=== PATIENT | female | born 1995 | race Caucasian/White ===

== ENCOUNTER 2017-06-29 17:27 | Emergency (ER) | payer BC, SELFPAY ==
[2017-06-29 17:33] VITALS: BP 151/80; PULSE 96; RESP 16; TEMP 36.5; O2SAT 98; BMI 43.9
--- NOTE | 2017-06-29 17:45 | HMH.EDGENADL ---
ED Disposition Clinical Impression: Laceration of thumb without complication, Laceration Disposition: Home, Self-Care Condition on Discharge: Good Instructions: DI for Laceration Repair Additional Instructions: keep the wound dry and clean. use ssplint all the time. wound recheck in am with dr mosses. barragan if needed. - Critical Care Critical Care Time: No Attestation: On 06/29/17, the high probability of a clinically significant, sudden or life threatening deterioration of the following system(s) required my full and direct attention, intervention and personal management. The time I documented below is in addition to time spent performing reported procedures but includes the following listed in this critical care notation. Medical Decision Making Vital Signs: 06/29/17 17:33 Temperature 97.7 F Temperature Source Temporal Artery Scan Pulse Rate [Right Brachial] 96 H Respiratory Rate 16 Blood Pressure [Right Arm] 151/80 Blood Pressure Mean [Right Arm] 103 Blood Pressure Source [Right Arm] Automatic Cuff Blood Pressure Position [Right Arm] Sitting 02 Sat by Pulse Oximetry 98 - Alfred Inquiry Pt receiving controlled substance: No Alfred was queried for this patient: No Medical Decision Making Narrative: The discussion with the patient she opted to use Steri-Strips and glue. She understands that she has to keep the splint on all the time until full healing. General Adult HPI - General Chief complaint: Wound/Laceration Stated complaint: AO 1630 Left Thumb Lac at Home Mode of Arrival: Ambulatory Limitations: No Limitations Description of Symptoms (Recalled from ER Triage Doc. by RN): LEFT THUMB LACERATION WHEN CUTTING OPEN A TOY WITH A KNIFE - History of Present Illness HPI narrative: 22 years old who cut her distal right thumb while he. Bleeding stopped. Onset (ago): minute(s) Location: right, upper extremity Radiation: non-radiation Severity scale (1-10): 1 Relieving factors: rest (extending the thumb close the wound) Exacerbating factors: movement (causes dehescence ) Associated symptoms: denies other symptoms (No loss of motor movement or sensations.) - Related Data Allergies Allergy/AdvReac Type Severity Reaction Status Date / Time ciprofloxacin [From CIPRO] Allergy Unknown Unverified 06/03/17 14:13 [facility] History I have reviewed the patient's past medical history: Yes - *Social History Alcohol Intake: never - Psychiatric History Expresses thoughts of harming self/others: None Suicide Plan Description: No Plan ROS Obtained: Yes All systems reviewed & no additional complaints - Constitutional Constitutional: Reports as per HPI - Eyes Eyes: Reports as per HPI - ENT Ears, Nose, Mouth, and Throat: Reports as per HPI - Cardiovascular Cardiovascular: Reports as per HPI - Respiratory Respiratory: Yes as per HPI - Gastrointestinal Gastrointestingal: Reports: as per HPI - Genitourinary Male Genitourinary: Reports as per HPI Female Genitourinary: Reports as per HPI - Musculoskeletal Musculoskeletal: Reports as per HPI - Integumentary/Breasts Skin/Breast: Reports as per HPI - Endocrine Endocrine: Reports as per HPI - Hematologic/Lymphatic Henatologic/Lymphatic: Reports as per HPI - Allergic/Immunologic Allergic/Immunologic: Reports as per HPI Physical Exam - General General appearance: alert, in no apparent distress - Head Head exam: atraumatic, normocephalic, normal inspection - Eye Eye exam: Present: normal appearance, PERRL, EOMI - ENT ENT exam: Present: normal exam, normal oropharynx, mucous membranes moist, TM's normal bilaterally, normal external ear exam - Neck Neck exam: Present: normal inspection, full ROM, trachea midline. Absent: meningismus, lymphadenopathy - Chest Chest inspection: Present: normal inspection, symmetric chest wall rise. Absent: tenderness - Respiratory Respiratory exam: Present: normal lung s
--- NOTE | 2017-06-29 17:49 | ED_ITS ---
ED Disposition Clinical Impression: Laceration of thumb without complication, Laceration Disposition: Home, Self-Care Condition on Discharge: Good Instructions: DI for Laceration Repair Additional Instructions: keep the wound dry and clean. use ssplint all the time. wound recheck in am with dr mosses. barragan if needed. - Critical Care Critical Care Time: No Attestation: On 06/29/17, the high probability of a clinically significant, sudden or life threatening deterioration of the following system(s) required my full and direct attention, intervention and personal management. The time I documented below is in addition to time spent performing reported procedures but includes the following listed in this critical care notation. Medical Decision Making Vital Signs: 06/29/17 17:33 Temperature 97.7 F Temperature Source Temporal Artery Scan Pulse Rate [Right Brachial] 96 H Respiratory Rate 16 Blood Pressure [Right Arm] 151/80 Blood Pressure Mean [Right Arm] 103 Blood Pressure Source [Right Arm] Automatic Cuff Blood Pressure Position [Right Arm] Sitting 02 Sat by Pulse Oximetry 98 - Alfred Inquiry Pt receiving controlled substance: No Alfred was queried for this patient: No Medical Decision Making Narrative: The discussion with the patient she opted to use Steri-Strips and glue. She understands that she has to keep the splint on all the time until full healing. General Adult HPI - General Chief complaint: Wound/Laceration Stated complaint: AO 1630 Left Thumb Lac at Home Mode of Arrival: Ambulatory Limitations: No Limitations Description of Symptoms (Recalled from ER Triage Doc. by RN): LEFT THUMB LACERATION WHEN CUTTING OPEN A TOY WITH A KNIFE - History of Present Illness HPI narrative: 22 years old who cut her distal right thumb while he. Bleeding stopped. Onset (ago): minute(s) Location: right, upper extremity Radiation: non-radiation Severity scale (1-10): 1 Relieving factors: rest (extending the thumb close the wound) Exacerbating factors: movement (causes dehescence ) Associated symptoms: denies other symptoms (No loss of motor movement or sensations.) - Related Data Allergies Allergy/AdvReac Type Severity Reaction Status Date / Time ciprofloxacin [From CIPRO] Allergy Unknown Unverified 06/03/17 14:13 [facility] History I have reviewed the patient's past medical history: Yes - *Social History Alcohol Intake: never - Psychiatric History Expresses thoughts of harming self/others: None Suicide Plan Description: No Plan ROS Obtained: Yes All systems reviewed & no additional complaints - Constitutional Constitutional: Reports as per HPI - Eyes Eyes: Reports as per HPI - ENT Ears, Nose, Mouth, and Throat: Reports as per HPI - Cardiovascular Cardiovascular: Reports as per HPI - Respiratory Respiratory: Yes as per HPI - Gastrointestinal Gastrointestingal: Reports: as per HPI - Genitourinary Male Genitourinary: Reports as per HPI Female Genitourinary: Reports as per HPI - Musculoskeletal Musculoskeletal: Reports as per HPI - Integumentary/Breasts Skin/Breast: Reports as per HPI - Endocrine Endocrine: Reports as per HPI - Hematologic/Lymphatic Henatologic/Lymphatic: Reports as per HPI - Allergic/Immunologic Allergic/Im
== END 2017-06-29 17:53 | disposition home or self-care (01) ==
PROVIDERS: Emergency Provider Emergency Medicine; Family Provider Family Medicine
DX: S61.012A Laceration without foreign body of left thumb without damage to nail, initial encounter (principal); W26.0XXA Contact with knife, initial encounter; Y93.89 Activity, other specified; Y92.009 Unspecified place in unspecified non-institutional (private) residence as the place of occurrence of the external cause
CPT/HCPCS: 99282

== ENCOUNTER 2017-06-30 16:33 | Emergency (ER) | payer BC, SELFPAY | END 2017-06-30 17:33 | disposition left against medical advice (07) | PROVIDERS: Emergency Provider Nurse Practitioner; Family Provider Family Medicine; PCP Family Medicine | DX: Z53.29 Procedure and treatment not carried out because of patient's decision for other reasons (principal); S61.019A Laceration without foreign body of unspecified thumb without damage to nail, initial encounter ==

== ENCOUNTER → 2017-09-25 15:25 | Outpatient (CLI) | payer BC, SELFPAY ==
[2017-09-25 16:04] LABS: Basophils % 0.2 % (0.1-2.0); Eosinophils # 0.2 K/mm3 (0.0-0.4); Eosinophils % 1.9 % (0.1-12.0); Hematocrit 42.8 % (37.0-47.0); Hemoglobin 13.6 g/dL (12.2-16.2); Lymphocytes # 1.8 K/mm3 (0.7-4.5); Lymphocytes % 17.7 K/mm3 (10-50); Mean Corpuscular HGB Conc 31.8 g/dL (31.8-35.4); Mean Corpuscular Hemoglobin 26.7 pg (27.0-31.2); Mean Corpuscular Volume 84.1 fl (81-99); Mean Platelet Volume 7.8 fl (7.4-10.4); Monocytes # 0.5 K/mm3 (0.1-1.0); Monocytes % 5.2 % (1.7-9.3); Neutrophils # 7.6 K/mm3 (1.8-7.8); Platelet Count 355 K/mm3 (142-424); Red Blood Count 5.09 M/mm3 (4.20-5.40); White Blood Count 10.2 K/mm3 (4.8-10.8)
[2017-09-27 08:20] LABS: HIV Screen 4th Generation wRfx Non Reactive (Non Reactive)
[2017-09-27 19:03] LABS: Hepatitis B Surface Antigen Negative (Negative); Hepatitis C Antibody <0.1 s/co ratio (0.0-0.9); Rapid Plasma Reagin Ab Titer Non Reactive (NonRea<1:1); Rubella Antibodies, IgG 5.34 index (Immune >0.99)
== END ==
PROVIDERS: Family Provider Family Medicine; PCP Family Medicine; Visit Provider Obstetrics & Gynecology
DX: Z34.90 Encounter for supervision of normal pregnancy, unspecified, unspecified trimester (principal)
CPT/HCPCS: 36415; 85025; 86592; 86703; 86762; 86850; 87340; 87380; G0432

== ENCOUNTER → 2017-09-30 10:32 | Outpatient (CLI) | payer BC, SELFPAY ==
--- NOTE | 2017-09-30 10:33 | US_ITS ---
US OB transvaginal HISTORY: ITS.REASON: US OB - Dates ORDERING PHYSICIAN: Janet Terrell MD PATIENT AGE: 22 years COMPARISON: FINDINGS: An intrauterine gestational sac is present with a pole with a crown-rump length of 0.40 cm correlating to gestational age of 6w1d . heart tones are present with an FHR of 114 bpm's. Yolk sac is noted. Adnexa: There is a 1 cm right corpus luteum cyst. IMPRESSION: Live intrauterine gestation at 8 weeks 1 days as described above. Estimated due date by ultrasound is 05/25/2018
== END ==
PROVIDERS: Family Provider Family Medicine; PCP Family Medicine; Visit Provider Obstetrics & Gynecology
DX: O26.841 Uterine size-date discrepancy, first trimester (principal)
CPT/HCPCS: 76830

== ENCOUNTER → 2018-01-05 13:32 | Outpatient (CLI) | payer MEDICAID, SELFPAY ==
--- NOTE | 2018-01-05 13:33 | US_ITS ---
US OB /maternal detail: INDICATION: ITS.REASON: US OB Complete ORDERING PHYSICIAN: Janet Terrell MD PATIENT AGE: 22 years TECHNIQUE: ultrasound transabdominal scanning. COMPARISON: No previous relevant studies. FINDINGS: Maternal obesity slight difficult scan Single active viable intrauterine gestation. Breech position Currently. Placenta: Posterior placenta extends towards the fundus. Grade 1. No previa The cervix appears satisfactory fairly long, Closed and measuring 4.6 cm in length. Complete survey performed and was unremarkable on the submitted images as in PACS. No discrete anomalies identified on survey imaging by technologist. Active fetus.Three-vessel cord with satisfactory umbilical cord insertion. Survey of brain & ventricles. In posterior fossa unremarkable Face and neck survey unremarkable. Nasion intact Diaphragm and chest views unremarkable. 4- chamber heart imaged. Cine loop included. LVOT imaged Abdomen: Both kidneys noted and unremarkable. Stomach noted and satisfactory. Spine: Survey of the spine satisfactory with no anomalies identified nor imaged. Both arms and legs noted. Appears to be a male fetus. Amniotic Fluid: Adequate. Maternal adnexa: No gross findings encountered. Measurements: Average ultrasound age 20 week 2 day. Gestational Age 20 week 0 day. Based on LMP 08/18/2017 Estimated due date by ultrasound age 1205/23/2018. Estimated weight 3 47-g +/- 51 grams. BPD = 20 week 0 day OFD = 21 week 2 day HC = 20 week 1 day AC = 20 week 5 day FL = 20 week 1 day Heart Rate = 155 Cerebellum = 20 week 0 day Humerus = 20 week 5 day HC/AC = 1.14.(1.09-1.26.) CI = 72%.(70-86%). FL/BPD is 71%. FL/AC is 21%. IMPRESSION: 20 week 2 day average ultrasound age breech position . Active fetus. Anatomical survey of unremarkable & WNL
== END ==
PROVIDERS: Family Provider Family Medicine; PCP Family Medicine; Visit Provider Obstetrics & Gynecology
DX: Z36.0 Encounter for antenatal screening for chromosomal anomalies (principal)
CPT/HCPCS: 76811

== ENCOUNTER → 2018-03-04 09:18 | Outpatient (CLI) | payer MEDICAID, SELFPAY ==
--- NOTE | 2018-03-04 09:26 | CA_ITS ---
PROCEDURE: 2-D M-mode and color Doppler study INDICATIONS FOR THE TEST: Chest pain COPD Heart Murmur+ Tobacco Smoking Palpitations Fatigue Syncope Edema Hypertension Diabetes Mellitus Rheumatic Fever SOB M[place] Obesity+Hyperlipidemia Family History HD Additional History PREG 28 WEEKS PATIENT INFORMATION HEIGHT: 62 WEIGHT:261 GENDER: Female B/P:117/78 2-D/M-MODE INTERPRETATION: 2-D MEASUREMENTS OBSERVED VALUES IN CMS Right Ventricular Dimension (RVDd) 1.9 Interventricular Septum (Thickness)(IVsd) 1.0 Left Ventricular Internal Dimensions(LVIDd) 5.5 Left Ventricular Posterior Wall (Thickness)(LVPWd) 1.0 Aortic Root 3.2 Aortic Cusp Separation 2.0 Left Atrial Dimensions (LAD) 3.6 2D 1. Left atrium is normal size, left ventricle is normal size, there is no concentric left ventricular hypertrophy, visually estimated ejection fraction 55% with no regional wall motion abnormality. 2. The right atrium and right ventricle are normal size and contractility. 3. The aortic, mitral and tricuspid valve are grossly normal. 4. The pulmonic valve is poorly visualized. 5. No significant pericardial effusion noted. DOPPLER INTERROGATION: Doppler interrogation of the aortic, mitral and tricuspid valvular presence of mild mitral and tricuspid regurgitation, tricuspid regurgitation jet velocity is insufficient for calculation of the right ventricular systolic pressure, diastolic parameters are within normal range. CONCLUSION: 1. Normal left ventricular size, preserved left ventricular systolic function, visually estimated ejection fraction 55% with no regional wall motion abnormality, diastolic parameters are within normal range. 2. Mild mitral and tricuspid regurgitation 3. No significant pericardial effusion noted.
== END ==
PROVIDERS: PCP Internal Medicine Adolescent Medicine; Visit Provider Nurse Practitioner Family
DX: R01.1 Cardiac murmur, unspecified (principal); R42 Dizziness and giddiness
CPT/HCPCS: 93306

== ENCOUNTER → 2018-03-09 14:44 | Outpatient (CLI) | payer MEDICAID, SELFPAY | PROVIDERS: Family Provider Family Medicine; PCP Internal Medicine Adolescent Medicine; Visit Provider Nurse Practitioner Obstetrics & Gynecology | DX: O36.63X0 Maternal care for excessive fetal growth, third trimester, not applicable or unspecified (principal) ==

== ENCOUNTER → 2018-04-07 14:15 | Outpatient (CLI) | payer MEDICAID, SELFPAY ==
--- NOTE | 2018-04-07 14:16 | US_ITS ---
US OB biophysical profile, US OB follow up: Indication: ITS.REASON: US OB BPP Growth- LGA ORDERING PHYSICIAN: Janet Terrell MD PATIENT AGE: 23 years FINDINGS: The following parameters are obtained: Average ultrasound age is 34w6d. Estimated due date by ultrasound is 05/13/2018. Estimated weight is 2483 Growth percentile is 85% BPD: 34w3d OFD: 36w3d HC: 34w6d AC: 33w6d FL: 36w2d heart rate: 150 bpm. HC/AC: 1.04 (0.96-1.11) Cephalic index: 77% (70-86%) FL/BPD: 83% (71-87%) FL/AC: 24% (20-24%) Amniotic fluid index: 12 cm Qualitative AFV: 2 breathing movements: 2 Gross body movements: 2 Tone: 2 Biophysical profile score: 8/8 No obvious anomalies evident. Placenta: Posterior GR 2 Cervix: Appears closed and measures 4 cm IMPRESSION: There is a single live fetus in cephalic presentation with an average ultrasound age of 34 weeks and 6 days. Estimated weight is 2483 g which is 85th percentile. No obvious anomalies. Please see above for detail Biophysical profile is 8 of 8. Posterior grade 2 placenta. No previa or abruption
== END ==
PROVIDERS: Family Provider Family Medicine; PCP Internal Medicine Adolescent Medicine; Visit Provider Obstetrics & Gynecology
DX: O36.63X0 Maternal care for excessive fetal growth, third trimester, not applicable or unspecified (principal)
CPT/HCPCS: 76816; 76819

== ENCOUNTER → 2018-04-22 16:38 | Outpatient (CLI) | payer MEDICAID, SELFPAY | PROVIDERS: Visit Provider Obstetrics & Gynecology | DX: Z34.90 Encounter for supervision of normal pregnancy, unspecified, unspecified trimester (principal) | CPT/HCPCS: 86403 ==

== ENCOUNTER 2018-04-26 19:54 | Outpatient (CLI) | payer MEDICAID, SELFPAY ==
[2018-04-26 20:04] VITALS: BP 129/73; PULSE 97; RESP 18; TEMP 37.1; O2SAT 97; BMI 49.4; BMI 49.7
[2018-04-26 20:24] LABS: Microscopic, Urine URINE MICROSCOPIC (MICROSCOPIC)
[2018-04-26 20:33] LABS: Appearance,Urine CLEAR (Clear); Bilirubin,Urine Negative (Negative); Blood, Urine TRACE-I (Negative); Color,Urine YELLOW (Yellow); Glucose,Urine (UA) Negative (Negative); Ketones,Urine Negative (Negative); Leukocyte Esterase,Urine Negative (Negative); Nitrate,Urine Negative (Negative); Protein,Urine Negative (Negative); Specific Gravity, Urine 1.025 (1.005-1.030); Urobilinogen,Urine 0.2 EU/dl (0.2)
[2018-04-26 21:07] LABS: Bacteria,Urine 2+ /lpf
== END 2018-04-26 20:54 | disposition home or self-care (01) ==
LOC: OBOUT 19:55 → OB 19:55
PROVIDERS: PCP Obstetrics & Gynecology; Visit Provider Obstetrics & Gynecology
DX: O26.893 Other specified pregnancy related conditions, third trimester (principal); Z3A.35 35 weeks gestation of pregnancy; R10.2 Pelvic and perineal pain
CPT/HCPCS: 59025; 81001; 87086

== ENCOUNTER 2018-05-15 04:47 | Inpatient (IN) ==
[2018-05-15 06:01] LABS: Basophils % 0.1 % (0.1-2.0); Eosinophils # 0.1 K/mm3 (0.0-0.4); Eosinophils % 0.6 % (0.1-12.0); Hematocrit 36.4 % (37.0-47.0); Hemoglobin 12.2 g/dL (12.2-16.2); Lymphocytes % 19.8 % (10-50); Mean Corpuscular HGB Conc 33.6 g/dL (31.8-35.4); Mean Corpuscular Volume 83.2 fl (81-99); Mean Platelet Volume 8.1 fl (7.4-10.4); Monocytes # 0.4 K/mm3 (0.1-1.0); Neutrophils # 7.6 K/mm3 (1.8-7.8); Neutrophils % 75.4 % (37.0-80.0); Platelet Count 295 K/mm3 (142-424); Red Blood Count 4.37 M/mm3 (4.20-5.40); White Blood Count 10.1 K/mm3 (4.8-10.8)
--- NOTE | 2018-05-15 16:13 | Progress Note ---
[facility] Anesthesia Checklist - Patient Identification Patient Identification: Arm Band, Verbal (Name & ) - Structural Data Admitted From: Inpatient Planned Operative Procedure/s: labor epidural Consent for Planned Operative Procedure(s) Verified: Yes - NPO Status Verified Time NPO: 00:00 - Additional verifications Patient : Yes Anesthesia Reactions: No Hx Blood Transfusions: No Blood Transfusion Reaction: No Cephalosporin Allergy: No Previous Colonoscopy: No - Cardiovascular Assessment Heart Sounds: S1 & S2 Pulse Strength: Baseline Pulse Rhythm: Regular Peripheral Edema: No - Airway Assessment C-Spine Mobility Assessed: Yes TMJ Mobility Assessed: Yes Dentition: Good Dentition - Neurological Assessment Level of Consciousness: Awake, Alert, Appropriate Hx Seizures: No Numbness or tingling in extremities: No - Anesthesia Plan Anesthesia Risk discussed: Yes Anesthesia Plan: Verified ASA Class: II Anesthesia Type: Epidural [facility] History I have reviewed the patient's past medical history: Yes Medical History: Reports:: Heart Murmur Other Surgeries: Yes: Cholecystectomy. No: Amputation: No Fractures: No - *Social History Smoking Status: Never smoker Alcohol Intake: never Substance Use Type: denies use *Family Hx:: Asthma, Hypertension, Diabetes Para: 2
[2018-05-15 16:35] LABS: Microscopic, Urine URINE MICROSCOPIC (MICROSCOPIC)
[2018-05-15 17:03] LABS: Appearance,Urine CLEAR (Clear); Bilirubin,Urine Negative (Negative); Blood, Urine TRACE-L (Negative); Color,Urine YELLOW (Yellow); Glucose,Urine (UA) Negative (Negative); Ketones,Urine 3+ (Negative); Leukocyte Esterase,Urine Negative (Negative); PH,Urine 8.5 (5.0-8.5); Protein,Urine Negative (Negative); Specific Gravity, Urine 1.015 (1.005-1.030)
--- NOTE | 2018-05-15 17:33 | History & Physical Report ---
OB - H&P: HPI Antepartum - History of Present Illness Chief complaint: IOL Comments: 38 5/7 LGA fetus >90% with 2 previous macrosomic infants; requested IOL [facility] History I have reviewed the patient's past medical history: Yes Medical History: Reports:: Heart Murmur Denies:: Seizures Other Medical History: Denies: Blood Transfusion Reaction Other Surgeries: Yes: Cholecystectomy. No: Amputation: No Fractures: No - *Social History Smoking Status: Never smoker Alcohol Intake: never Substance Use Type: denies use *Family Hx:: Asthma, Hypertension, Diabetes Para: 2 Review of Systems - Review of Systems CONSTITUTIONAL: no fever/chills HEENT: no oral lesions PULMONARY: no shortness of breath or difficulty breathing CV: no racing heart, palpitations or chest pain ABD: no abdominal pain, N/V : irregular contractions; no LOF or VB OB: normal movement SKIN: no new rash or skin lesions MS: + low back pain EXT: no edema NEURO: no mental status changes PSYCH: no depression Meds Home Medications Medication Instructions Recorded Confirmed Type 1 tab PO DAILY 09/25/17 05/15/18 History vitamin,calcium,xiorvkxy-oece-ucbzg acid tablet Allergies Allergy/AdvReac Type Severity Reaction Status Date / Time ciprofloxacin [From CIPRO] Allergy Unknown Verified 05/11/18 08:51 OB - H&P: Exam - Physical Exam Vital signs: Temp Pulse Resp BP Pulse Ox 97.5 F L 96 H 16 123/72 98 05/15/18 07:20 05/15/18 07:20 05/15/18 15:22 05/15/18 07:20 05/15/18 07:20 Narrative: CONSTITUTIONAL: no acute distress HEENT: mucous membranes moist PULMONARY: breathing unlabored without audible wheezes CV: no tachycardia or visible JVD; normal LE peripheral pulses ABD: soft, NT/ND, no guarding : cervix 3/50/-1. AROM clear fluid; IUPC and FSE placed without difficulty. SKIN: no visible rash or lesions EXT: 1+ edema LEs NEURO: alert/oriented, no altered mental status PSYCH: appropriate mood and demeanor without visible anxiety/depression - Detailed Labor and Delivery Exam Dilation (cm): 3 Effacement (%): 50 station: -1 Consistency: soft Membranes: artificially ruptured Amniotic fluid: clear Baseline heart rate: 140 monitor accelerations: Absent monitor decelerations: None FDC variability: Moderate (11-25) Contraction frequency (min): 3 Comments: NST reactive/category 1 OB - Results - Labs Labs: Short CBC 05/15/18 Range/Units 05:30 WBC 10.1 (4.8-10.8) K/mm3 Hgb 12.2 (12.2-16.2) g/dL Hct 36.4 L (37.0-47.0) % Plt Count 295 (142-424) K/mm3 Urine 05/15/18 Range/Units 16:19 Urine Color Yellow (Yellow) Urine Appearance Clear (Clear) Urine pH 8.5 (5.0-8.5) Ur Specific [place] 1.015 (1.005-1.030) Urine Protein Negative (Negative) Urine Glucose (UA) Negative (Negative) OB - A/P Antepartum (1) with 38 completed weeks gestation Current visit: Yes Status: Acute (2) Morbid obesity with BMI of 45.0-49.9, adult Current visit: No Status: Acute (3) Large for dates Problem details: 85% Current visit: No Status: Acute (4) Hx of macrosomia, infant of prior , currently Current visit: No Status: Acute (5) Heartburn during Current visit: No Status: Acute - Additional Plan Additional Information:: IOL with pitocin S/P amniotomy Epidural at request for intrapartum pain management status reassuring; continuous monitoring Continue current management; anticipate
[2018-05-15 17:50] LABS: Bacteria,Urine Trace /lpf; RBC,Urine Occasional #/hpf (0-3); WBC,Urine Occasional #/hpf (0-3)
--- NOTE | 2018-05-15 20:44 | Procedure Note ---
- Delivery Note Delivery Date:: 05/15/18 Delivery Time:: 08:07 Anesthesia Type: Epidural Was labor medically induced?: Yes Induction method: per pitocin protocol Gestational age (weeks): 38 delivered prior to 39 weeks?: Yes Justification for early elective delivery:: Polydraminos (and LGA) at 1 minute: 8 at 5 minutes: 9 Delivery Procedure:: Precipitous spontaneous vaginal delivery of vigorous liveborn male infant with nursing staff attending delivery. Physician was called after infant was delivered, but was in house so presented to the room within a few minutes and delivered placenta, completed exam to determine lacerations/repair. Apgars 8 & 9. No perineal, vaginal or cervical lacerations. Mom/baby stable to recovery. Per nursing staff, the patient was feeling pressure and as the nurses were putting her legs into stirrups for "trial push" the infant was precipitously delivered without any official pushing attempt and before the nurses could call physician. Placental Delivery Description: Spontaneous
[2018-05-16 06:16] LABS: Hematocrit 32.8 % (37.0-47.0)
[2018-05-16 11:45] VITALS: BP 123/69
--- NOTE | 2018-05-16 14:41 | Progress Note ---
Internal Medicine - PN: Subj *Date: 05/16/18 *Time: 14:35 Interval history: PPD #1 No complaints Tolerating regular diet, ambulating and voiding without difficulty Lochia appropriate Exam Vital signs and Labs for Last 24 Hours: Temp Pulse Resp BP Pulse Ox 97.8 F 103 H 17 123/69 100 05/16/18 08:00 05/16/18 08:00 05/16/18 08:00 05/16/18 08:00 05/16/18 08:00 Laboratory Results - last 24 hr 05/15/18 16:19: Urine Color Yellow, Urine Appearance Clear, Urine pH 8.5, Ur Specific [place] 1.015, Urine Protein Negative, Urine Glucose (UA) Negative, Urine Ketones 3+, Urine Blood Trace-l, Urine Nitrate Negative, Urine Bilirubin Negative, Urine Urobilinogen 1.0, Ur Leukocyte Esterase Negative, Urine RBC Occasional, Urine WBC Occasional, Ur Squamous Epith Cells 5-10, Urine Bacteria Trace 05/16/18 06:02: Hgb 11.0 L, Hct 32.8 L I & O for Last 24 hours: Intake & Output 05/14/18 05/15/18 05/16/18 05/17/18 11:59 11:59 11:59 11:59 Weight 264 lb Narrative: CONSTITUTIONAL: no acute distress HEENT: mucous membranes moist PULMONARY: breathing unlabored without audible wheezes CV: no tachycardia or visible JVD; normal LE peripheral pulses ABD: soft, NT/ND, no guarding : fundus firm at/below umbilicus SKIN: no visible rash or lesions EXT: 1+ edema LEs NEURO: alert/oriented, no altered mental status PSYCH: appropriate mood and demeanor Assessment and Plan (1) with 38 completed weeks gestation Current visit: Yes Status: Acute Category: Medical Code(s): Z3A.38 - 38 weeks gestation of (2) Morbid obesity with BMI of 45.0-49.9, adult Current visit: No Status: Acute Category: Medical Code(s): E66.01 - Morbid (severe) obesity due to excess calories; Z68.42 - Body mass index (BMI) 45.0- 49.9, adult (3) Large for dates Problem details: 85% Current visit: No Status: Acute Category: Medical (4) Hx of macrosomia, of prior , currently Current visit: No Status: Acute Category: Medical Code(s): O09.299 - Supervision of with other poor reproductive or obstetric history, unspecified trimester (5) Heartburn during Current visit: No Status: Acute Category: Medical
--- NOTE | 2018-05-17 08:43 | Progress Note ---
Internal Medicine - PN: Subj *Date: 05/17/18 *Time: 08:42 Interval history: This is day #2. The patient is afebrile. Vital signs stable. Abdomen soft. Lochia normal. Uterine fundus involuting well. She will be discharged today. Exam Vital signs and Labs for Last 24 Hours: Temp Pulse Resp BP Pulse Ox 97.8 F 103 H 17 123/69 100 05/16/18 08:00 05/16/18 08:00 05/16/18 08:00 05/16/18 08:00 05/16/18 08:00 I & O for Last 24 hours: Intake & Output 05/14/18 05/15/18 05/16/18 05/17/18 11:59 11:59 11:59 11:59 Weight 264 lb Assessment and Plan (1) with 38 completed weeks gestation Current visit: Yes Status: Acute Category: Medical Code(s): Z3A.38 - 38 weeks gestation of (2) Morbid obesity with BMI of 45.0-49.9, adult Current visit: No Status: Acute Category: Medical Code(s): E66.01 - Morbid (severe) obesity due to excess calories; Z68.42 - Body mass index (BMI) 45.0- 49.9, adult (3) Large for dates Problem details: 85% Current visit: No Status: Acute Category: Medical (4) Hx of macrosomia, infant of prior , currently Current visit: No Status: Acute Category: Medical Code(s): O09.299 - Supervision of with other poor reproductive or obstetric history, unspecified trimester (5) Heartburn during Current visit: No Status: Acute Category: Medical
--- NOTE | 2018-05-17 08:46 | Discharge Summary ---
General - General Admission date:: 05/15/18 Discharge date: 05/17/18 Hospital Course Rhogam Administration: Not Indicated Objective Vital signs: Temp Pulse Resp BP Pulse Ox 97.8 F 103 H 17 123/69 100 05/16/18 08:00 05/16/18 08:00 05/16/18 08:00 05/16/18 08:00 05/16/18 08:00 DS: Diagnosis - Discharge Diagnosis (1) with 38 completed weeks gestation Status: Acute (2) Morbid obesity with BMI of 45.0-49.9, adult Status: Acute (3) Large for dates Status: Acute Problem details: 85% (4) Hx of macrosomia, of prior , currently Status: Acute (5) Heartburn during Status: Acute Discharge Plan - Patient Discharge Instructions - Follow up Plan Home Medications: Home Medications Medication Instructions Recorded Confirmed Type 1 tab PO DAILY 09/25/17 05/15/18 History vitamin,calcium,kjmngjlo-rmbq-zdzga acid tablet Prescriptions/Medication Reconciliation: No Action vitamin,calcium,pgwtriqw-qraz-kgwcr acid tablet 1 tab PO DAILY
== END 2018-05-17 16:50 | disposition home or self-care (01) ==
LOC: OB 04:47
PROVIDERS: ADMIT Obstetrics & Gynecology; ATTEND Obstetrics & Gynecology

== ENCOUNTER → 2018-06-25 08:07 | Outpatient (CLI) | payer MEDICAID, SELFPAY ==
[2018-06-25 08:21] LABS: Basophils % 0.7 % (0.1-2.0); Eosinophils # 0.2 K/mm3 (0.0-0.4); Eosinophils % 3.2 % (0.1-12.0); Hematocrit 40.2 % (37.0-47.0); Hemoglobin 12.9 g/dL (12.2-16.2); Lymphocytes # 2.1 K/mm3 (0.7-4.5); Lymphocytes % 31.7 % (10-50); Mean Corpuscular HGB Conc 32.1 g/dL (31.8-35.4); Mean Corpuscular Hemoglobin 26.6 pg (27.0-31.2); Monocytes # 0.4 K/mm3 (0.1-1.0); Monocytes % 6.4 % (1.7-9.3); Neutrophils # 3.8 K/mm3 (1.8-7.8); Neutrophils % 58.1 % (37.0-80.0); Platelet Count 271 K/mm3 (142-424); Red Blood Count 4.84 M/mm3 (4.20-5.40); Red Cell Distribution Width 13.4 % (11.5-17.5); White Blood Count 6.5 K/mm3 (4.8-10.8)
[2018-06-25 10:01] LABS: Alanine Aminotransferase 98 U/L (12-78); Albumin Level 3.3 gm/dL (3.4-5.0); Albumin/Globulin Ratio 0.8 (1.1-1.8); Alkaline Phosphatase 146 U/L (46-116); Aspartate Amino Transferase 49 U/L (15-37); Bilirubin,Total 0.7 mg/dL (0.2-1.0); Blood Urea Nitrogen 10 mg/dL (7-18); Calcium 8.5 mg/dL (8.5-10.1); Carbon Dioxide 28 mmol/L (21.0-32.0); Chloride 103 mmol/L (98-107); Chol/HDL Ratio 4.8 (1-3.5); Cholesterol 224 mg/dL (140-200); Creatinine,Serum 0.78 mg/dL (0.55-1.02); Estimated Glomerular Filt Rate 91 ml/min (>60); GFR (African American) 110 ML/MIN (>60); Glucose 96 mg/dL (74-106); HDL Cholesterol 47 mg/dL (29-89); LDL Cholesterol 154 mg/dL (0-130); Sodium 139 mmol/L (136-145); Total Protein,Serum 7.3 gm/dL (6.4-8.2); Triglycerides 113 mg/dL (30-200); VLDL Cholesterol 23 mg/dL (0-40)
== END ==
PROVIDERS: Visit Provider Nurse Practitioner Family
DX: Z00.00 Encounter for general adult medical examination without abnormal findings (principal)
CPT/HCPCS: 36415; 80053; 80061; 85025

== ENCOUNTER → 2018-07-27 14:35 | Outpatient (CLI) | payer MEDICAID, SELFPAY ==
[2018-07-27 17:00] LABS: Free T4 (Free Thyroxine) 1.01 ng/dl (0.76-1.46); Thyroid Stimulating Hormone 1.44 uIU/ml (0.358-3.740)
== END ==
PROVIDERS: Visit Provider Nurse Practitioner Family
DX: F41.1 Generalized anxiety disorder (principal); E78.2 Mixed hyperlipidemia; E66.01 Morbid (severe) obesity due to excess calories
CPT/HCPCS: 36415; 84439; 84443

== ENCOUNTER → 2019-01-29 08:09 | Outpatient (CLI) | payer MEDICAID, SELFPAY ==
[2019-01-29 08:27] LABS: Basophils % 0.2 % (0.1-2.0); Eosinophils # 0.2 K/mm3 (0.0-0.4); Hematocrit 42.2 % (37.0-47.0); Hemoglobin 13.5 g/dL (12.2-16.2); Lymphocytes % 27.2 % (10-50); Mean Corpuscular HGB Conc 31.9 g/dL (31.8-35.4); Mean Corpuscular Volume 81.4 fl (81-99); Mean Platelet Volume 7.4 fl (7.4-10.4); Monocytes # 0.4 K/mm3 (0.1-1.0); Monocytes % 5.1 % (1.7-9.3); Neutrophils # 4.8 K/mm3 (1.8-7.8); Neutrophils % 65.5 % (37.0-80.0); Platelet Count 320 K/mm3 (142-424); Red Blood Count 5.18 M/mm3 (4.20-5.40); Red Cell Distribution Width 13.2 % (11.5-17.5); White Blood Count 7.3 K/mm3 (4.8-10.8)
[2019-01-29 10:43] LABS: Alanine Aminotransferase 21 U/L (12-78); Albumin Level 3.4 gm/dL (3.4-5.0); Albumin/Globulin Ratio 0.9 (1.1-1.8); Alkaline Phosphatase 97 U/L (46-116); Anion Gap 11.6 mEq/L (5-15); Aspartate Amino Transferase 7 U/L (15-37); Bilirubin,Total 0.5 mg/dL (0.2-1.0); Blood Urea Nitrogen 11 mg/dL (7-18); Calcium 9.4 mg/dL (8.5-10.1); Carbon Dioxide 29 mmol/L (21.0-32.0); Chloride 105 mmol/L (98-107); Chol/HDL Ratio 3.5 (1-3.5); Cholesterol 159 mg/dL (140-200); Creatinine,Serum 0.79 mg/dL (0.55-1.02); Estimated Glomerular Filt Rate 89 ml/min (>60); GFR (African American) 107 ML/MIN (>60); Glucose 101 mg/dL (74-106); HDL Cholesterol 46 mg/dL (29-89); LDL Cholesterol 94 mg/dL (0-130); Potassium 4.6 mmoL/L (3.5-5.1); Sodium 141 mmol/L (136-145); Thyroid Stimulating Hormone 3.81 uIU/ml (0.358-3.740); Total Protein,Serum 7.4 gm/dL (6.4-8.2); Triglycerides 93 mg/dL (30-200); VLDL Cholesterol 19 mg/dL (0-40)
[2019-02-01 18:09] LABS: Free T4 (Free Thyroxine) 0.93 ng/dl (0.76-1.46)
== END ==
PROVIDERS: Nurse Practitioner Family; Visit Provider Internal Medicine Adolescent Medicine
DX: R79.89 Other specified abnormal findings of blood chemistry (principal); R74.8 Abnormal levels of other serum enzymes; E78.2 Mixed hyperlipidemia; E66.01 Morbid (severe) obesity due to excess calories
CPT/HCPCS: 36415; 80053; 80061; 84439; 84443; 85025

== ENCOUNTER → 2019-03-30 09:41 | Outpatient (POV) | payer MEDICAID, SELFPAY | PROVIDERS: Visit Provider Otolaryngology | DX: Z00.00 Encounter for general adult medical examination without abnormal findings (principal) ==

== ENCOUNTER → 2019-04-13 08:25 | Outpatient (CLI) | payer OTHER, SELFPAY ==
--- NOTE | 2019-04-13 08:30 | CT_ITS ---
PROCEDURE: CT SINUS WO CON CLINICAL HISTORY: RECURRENT SINUSITIS Recurrence sinusitis with bilateral facial pain and headache COMPARISON: No exams were available for comparison TECHNIQUE: Axial images obtained with sagittal and coronal reformats. All CT scans at the facility use one or more dose reduction, viz: automated exposure control, ma/kV adjustment per patient size (including targeted exams where dose is matched to indication, i.e. head), or iterative reconstruction technique. FINDINGS: The frontal, ethmoid, sphenoid, and maxillary sinuses have an unremarkable appearance. No sinus air-fluid levels, mucosal thickening, or sinus mass is evident. No mastoid effusion. There are few scattered mildly prominent cervical lymph nodes measuring up to 1.4 x 1 cm deep to the left sternocleidomastoid. Small bilateral submandibular nodes are present. No fracture or dislocation. The orbits have an unremarkable appearance as do the parotid and submandibular glands IMPRESSION: 1. Negative CT of the sinuses. 2. Scattered mildly prominent cervical lymph nodes Dictated by: David Marroquin MD 04/14/2019 06:27 Electronically signed by David Marroquin MD in [place] 04/14/2019 06:27
== END ==
PROVIDERS: PCP Internal Medicine Adolescent Medicine; Visit Provider Otolaryngology
DX: J32.9 Chronic sinusitis, unspecified (principal)
CPT/HCPCS: 70486

== ENCOUNTER → 2019-04-27 17:03 | Outpatient (CLI) | payer OTHER, SELFPAY ==
[2019-04-27 18:33] LABS: Free T4 (Free Thyroxine) 0.91 ng/dl (0.76-1.46); Thyroid Stimulating Hormone 2.03 uIU/ml (0.358-3.740)
[2019-04-29 13:20] LABS: Thyroid Peroxidase Antibodies 12 IU/mL (0-34)
== END ==
PROVIDERS: Visit Provider Nurse Practitioner Family
DX: R79.89 Other specified abnormal findings of blood chemistry (principal)
CPT/HCPCS: 36415; 84439; 84443; 86376

== ENCOUNTER → 2019-11-02 07:24 | Outpatient (CLI) | payer OTHER, SELFPAY ==
[2019-11-02 07:53] LABS: Basophils % 0.5 % (0.1-2.0); Eosinophils # 0.2 K/mm3 (0.0-0.4); Eosinophils % 2.7 % (0.1-12.0); Hematocrit 40.9 % (37.0-47.0); Hemoglobin 13.3 g/dL (12.2-16.2); Lymphocytes % 30.3 % (10-50); Mean Corpuscular HGB Conc 32.4 g/dL (31.8-35.4); Mean Corpuscular Hemoglobin 26.7 pg (27.0-31.2); Mean Corpuscular Volume 82.3 fl (81-99); Mean Platelet Volume 7.7 fl (7.4-10.4); Monocytes # 0.4 K/mm3 (0.1-1.0); Monocytes % 5.9 % (1.7-9.3); Neutrophils # 4.1 K/mm3 (1.8-7.8); Neutrophils % 60.7 % (37.0-80.0); Platelet Count 328 K/mm3 (142-424); Red Blood Count 4.97 M/mm3 (4.20-5.40); Red Cell Distribution Width 14.1 % (11.5-17.5); White Blood Count 6.7 K/mm3 (4.8-10.8)
[2019-11-02 08:14] LABS: Chloride 106 mmol/L (98-107)
[2019-11-02 08:15] LABS: Potassium 3.6 mmoL/L (3.5-5.1); Sodium 138 mmol/L (136-145)
[2019-11-02 08:17] LABS: Alanine Aminotransferase 12 U/L (12-78); Aspartate Amino Transferase 18 U/L (14-36); Blood Urea Nitrogen 13 mg/dl (7-17); Estimated Glomerular Filt Rate 102 ml/min (>60); GFR (African American) 123 ML/MIN (>60)
[2019-11-02 08:18] LABS: Albumin Level 4.1 g/dl (3.5-5.0); Albumin/Globulin Ratio 1.2 (1.1-1.8); Alkaline Phosphatase 88 U/L (38-126); Anion Gap 10.6 mEq/L (5-15); Bilirubin,Total 0.6 mg/dl (0.2-1.3); Calcium 9.1 mg/dl (8.4-10.2); Carbon Dioxide 25 mmol/L (22.0-30.0); Creatine Kinase 72 U/L (30-135); Globulin 3.3 g/dL (1.3-3.2); Glucose 105 mg/dl (74-100); Total Protein,Serum 7.4 g/dl (6.3-8.2)
[2019-11-02 08:48] LABS: Thyroid Stimulating Hormone 2.51 uIU/mL (0.465-4.68)
[2019-11-03 11:28] LABS: Vitamin B12 343 pg/mL (232-1245)
== END ==
PROVIDERS: Visit Provider Internal Medicine Adolescent Medicine
DX: M79.10 Myalgia, unspecified site (principal)
CPT/HCPCS: 36415; 80053; 82550; 82607; 84443; 85025

== ENCOUNTER → 2019-11-30 16:52 | Outpatient (CLI) | payer OTHER, SELFPAY | PROVIDERS: Visit Provider Nurse Practitioner Obstetrics & Gynecology | DX: N76.4 Abscess of vulva (principal) | CPT/HCPCS: 87070; 87077; 87186; 87205 ==

== ENCOUNTER → 2020-02-18 13:41 | Outpatient (CLI) | payer OTHER, SELFPAY ==
--- NOTE | 2020-02-18 14:11 | US_ITS ---
PROCEDURE: US OB TRANSVAGINAL CLINICAL INDICATION: US OB TV for Dates before 12 weeks COMPARISON: US OBBIO US OB biophysical profile from 04/07/2018 FINDINGS: An intrauterine gestational sac is present with a pole with a crown-rump length of 0.38cm correlating to gestational age of 6weeks 1day. heart tones are present with an FHR of 124bpm. Yolk sac is noted. There is a 1.5 cm right ovarian corpus luteum cyst IMPRESSION: Live IUP at 6 weeks 1 day Estimated due date by Ultrasound is 10/12/2020 Dictated by: David Marroquin MD 02/18/2020 15:06 aDvid Marroquin MD in [place] 02/18/2020 15:06
== END ==
PROVIDERS: PCP Internal Medicine Adolescent Medicine; Visit Provider Nurse Practitioner Obstetrics & Gynecology
DX: O26.841 Uterine size-date discrepancy, first trimester (principal)
CPT/HCPCS: 76817

== ENCOUNTER 2020-02-24 19:46 | Emergency (ER) | payer OTHER, SELFPAY ==
[2020-02-24 20:05] VITALS: BP 152/78; PULSE 78; RESP 17; TEMP 36.7; O2SAT 97; BMI 30.9
--- NOTE | 2020-02-24 20:14 | HMH.EDUTC ---
[facility] Disposition Clinical Impression: Abscess Cellulitis Qualifiers: Site of cellulitis: extremity Site of cellulitis of extremity: upper extremity Laterality: left Qualified Code(s): L03.114 - Cellulitis of left upper limb Disposition: Home, Self-Care Condition on Discharge: Good Instructions: Cellulitis, Boil, Clindamycin, Mupirocin Additional Instructions: *Start antibiotic(s) immediately and be sure to take as ordered for the FULL length of time although you may be feeling better or start to see improvement in the next 24-48 hours *Monitor closely. Outlined redness so that you can monitor easier. Follow up immediately for new or worsening symptoms including but not limited to redness, swelling, streaking from site fever or chills. *Warm compress 15 minutes 3-4 times day *Never squeeze or pop these on your own. Seek immediate medical attention next time this occurs *Monitor Temp. Tylenol every 4 hours as needed and ibuprofen every 6 hours as needed (as long as your primary care doctor has told you that it is ok to take both. For fever, aches, pain. ER if no less that 101 despite Tylenol and ibuprofen Follow up with your family doctor/primary care physician in the next 48-72 hours if no improvement Make sure to call back to the [facility] in the next 48-72 hours to see if your wound culture results are back Return if needed Straight to ER if any life threatening symptoms Prescriptions: clindamycin HCL [Clindamycin HCl 300mg Cap] 300 mg PO Q8 10 Days #30 cap Transmission Status: Pending to [id number] Mupirocin Calcium [Mupirocin 2% Cream 15gm] 1 applicatio TP TID 10 Days #1 tube Transmission Status: Pending to [id number] Referrals: Kevin Goss MD [Primary Care Provider] - As needed Time of Disposition: 20:21 Medical Decision Making - Alfred Inquiry Pt receiving controlled substance: No Alfred was queried for this patient: No Vital Signs: 02/24/20 20:05 Temperature 98.0 F Temperature Source Oral Pulse Rate [Right Brachial] 78 Respiratory Rate 17 Blood Pressure [Right Arm] 152/78 H Blood Pressure Mean [Right Arm] 102 Blood Pressure Source [Right Arm] Automatic Cuff Blood Pressure Position [Right Arm] Sitting 02 Sat by Pulse Oximetry 97 Oxygen Delivery Method Room Air Orders (Tests/Meds): ORDERS Category Date Time Status Wound Culture and Gram Stain Stat Micro 02/24/20 20:00 Ordered Medical Decision Narrative: Area on Left elbow marked for monitoring, medication discussed with pharmacy and clindamycin and bactroban baby safe [facility] HPI - General Stated complaint: spot on left elbow Time Seen by Provider: 02/24/20 20:05 Mode of Arrival: Ambulatory Source of Information: Patient Limitations: No Limitations Description of Symptoms (Recalled from Triage Doc. by RN): PATIENT HAS POSSIBLE BITE ON LEFT ELBOW X [address] OPEN AND DRAINING, REDNESS AND SWELLING NOTED TO AREA HEENT Symptoms (Recalled from RN notes): No Resp Symptoms (Recalled from RN notes): No Skin Symptoms (Recalled from RN notes): Yes MS Symptoms (Recalled from RN notes): No Functional Status (Recalled from RN notes): WNL - History of Present Illness Provider Complaint: Patient states that she noticed she has a red area on her left inner elbow States that she noticed it was draining earlier States that she is 7wks OB so she come in to get it looked at and get antibotics - Related Data Previous Rx's Medication Instructions Recorded Mupirocin Calcium [Mupirocin 2% 1 applicatio TP TID 10 Days #1 tube 02/24/20 Cream 15gm] clindamycin HCL [Clindamycin HCl 300 mg PO Q8 10 Days #30 cap 02/24/20 300mg Cap] Allergies Allergy/AdvReac Type Severity Reaction Status Date / Time ciprofloxacin [From CIPRO] Allergy Unknown Verified 12/06/19 14:58 - Worker's Comp Is this a Worker's Comp case?: No [facility] History - Hepatitis A Screen Drug use history?: No High risk sexual behaviors?: No History
[2020-02-24 20:25] VITALS: BP 152/78; PULSE 78; RESP 17; TEMP 36.7; O2SAT 97
== END 2020-02-24 20:27 | disposition home or self-care (01) ==
PROVIDERS: Emergency Provider Nurse Practitioner; PCP Internal Medicine Adolescent Medicine
DX: L03.114 Cellulitis of left upper limb (principal); R01.1 Cardiac murmur, unspecified
CPT/HCPCS: 87070; 87077; 87186; 87205; 99201

== ENCOUNTER 2020-02-25 14:05 | Emergency (ER) | payer OTHER, SELFPAY ==
[2020-02-25 14:13] VITALS: BP 136/87; PULSE 95; RESP 16; TEMP 37.7; O2SAT 98; BMI 34.0
--- NOTE | 2020-02-25 14:25 | HMH.EDGENADL ---
ED Disposition Clinical Impression: Cellulitis of left forearm Disposition: Home, Self-Care Condition on Discharge: Good Instructions: DI for Wound Infection Referrals: Kevin Goss MD [Primary Care Provider] - - Critical Care Critical Care Time: No Attestation: On 02/25/20, the high probability of a clinically significant, sudden or life threatening deterioration of the following system(s) required my full and direct attention, intervention and personal management. The time I documented below is in addition to time spent performing reported procedures but includes the following listed in this critical care notation. Medical Decision Making - Medical Records Medical records reviewed: Yes: I reviewed the patient's medical records. - Alfred Inquiry Pt receiving controlled substance: No Vital Signs: 02/25/20 14:13 Temperature 99.8 F H Temperature Source Oral Pulse Rate [Left Radial] 95 H Respiratory Rate 16 Blood Pressure [Right Arm] 136/87 Blood Pressure Mean [Right Arm] 103 Blood Pressure Position [Right Arm] Sitting 02 Sat by Pulse Oximetry 98 Oxygen Delivery Method Room Air Medical Decision Narrative: This is a 25-year-old female presenting to the emergency department with abscess of her left arm. The patient does have findings consistent with cellulitis. I did perform bedside ultrasound. There is no evidence of loculated effusion or significant abscess that could currently be drained. It appears that the initial needle decompression done yesterday was successful. I do believe the patient's persistent symptoms are likely secondary to failure to take her antibiotic. At this time she is hemodynamically stable. I will give her 1 dose of antibiotics in the emergency department. I did explain to her how crucial it is to take her antibiotics. The infection will continue to spread unless she maintains full course of her antibiotic therapy. She is to get her antibiotic filled immediatley and take until completion. She does need repeat examination in 48 hours. If she is to have any fevers or chills, weakness or worsening spread of the erythema, she is to return to the emergency department immediately. Verbalized understanding. General Adult HPI - General Chief complaint: Wound/Laceration Stated complaint: spot on elbow possible mersa and 7 weeks Time Seen by Provider: 02/25/20 14:20 Mode of Arrival: Ambulatory Limitations: No Limitations Description of Symptoms (Recalled from ER Triage Doc. by RN): to ed per pvt car with c/o wound, redness, swelling lt elbow pt seen yesterday in [facility] for same, states redness getting worse. clinda states she was unable to fill. pt given script for antibiotics and was unable to fill medication. - History of Present Illness HPI narrative: This is a 25-year-old female presented to the emergency department with a abscess on her left lower arm. Patient was seen in the urgent treatment center yesterday and diagnosed with abscess. She did have a needle decompression. She was also placed on antibiotic. However the patient states she was unable to get her antibiotics filled. She got concerned because there is some mild redness that is extended outside of the quechan they originally beau. He states that has been mildly painful. Patient states that she had to go to work so she was unable to get her antibiotics filled. She denies any fevers or chills. She is not having any other complaints. No chest pain or shortness of breath. No abdominal pain or vomiting. She did not try to inoculate the wound herself. She has kept it bandaged. Denies any headache or change in vision. - Related Data Previous Rx's Medication Instructions Recorded Mupirocin Calcium [Mupirocin 2% 1 applicatio TP TID 10 Days #1 tube 02/24/20 Cream 15gm] clindamycin HCL [Clindamycin HCl 300 mg PO Q8 10 Days #30 cap 02/24/20 300mg Cap] Allergies Allergy/AdvReac Type Severity Re
[2020-02-25 14:38] VITALS: BP 148/84; PULSE 94; RESP 19; TEMP 36.7; O2SAT 99
== END 2020-02-25 14:40 | disposition home or self-care (01) ==
PROVIDERS: Emergency Provider Emergency Medicine; PCP Internal Medicine Adolescent Medicine
DX: L03.114 Cellulitis of left upper limb (principal); Z34.90 Encounter for supervision of normal pregnancy, unspecified, unspecified trimester; R01.1 Cardiac murmur, unspecified; Z90.09 Acquired absence of other part of head and neck; Z90.49 Acquired absence of other specified parts of digestive tract
CPT/HCPCS: 99281

== ENCOUNTER → 2020-03-10 09:59 | Outpatient (CLI) | payer OTHER, SELFPAY ==
--- NOTE | 2020-03-10 10:12 | US_ITS ---
PROCEDURE: US OB TRANSVAGINAL CLINICAL INDICATION: OB W/ PELVIC PAIN/CRAMPING COMPARISON: US US OB TRANSVAGINAL from 02/18/2020 FINDINGS: An intrauterine gestational sac is present with a pole with a crown-rump length of 2.35cm correlating to gestational age of 9weeks 1day. heart tones are present with an FHR of 179bpm. Yolk sac is noted. There is an 18 mm right ovarian cyst and may represent a corpus luteum cyst IMPRESSION: Live IUP at 9 weeks 1 day. Estimated due date by Ultrasound is 10/12/2020 Dictated by: David Marroquin MD 03/10/2020 18:05 David Marroquin MD in [place] 03/10/2020 18:05
== END ==
PROVIDERS: PCP Internal Medicine Adolescent Medicine; Visit Provider Nurse Practitioner Obstetrics & Gynecology
DX: R10.2 Pelvic and perineal pain (principal); R10.9 Unspecified abdominal pain
CPT/HCPCS: 76817

== ENCOUNTER → 2020-05-26 09:48 | Outpatient (CLI) | payer OTHER, SELFPAY ==
--- NOTE | 2020-05-26 09:48 | US_ITS ---
PROCEDURE: US OB >= 14 WEEKS FETUS CLINICAL INDICATION: 20 week gestation COMPARISON: US US OB TRANSVAGINAL from 03/10/2020 FINDINGS: There is a live IUP present which is in breech presentation. heart and body motion noted. The placenta is anterior. The placenta is grade 1. The cervix is closed and measures 5 cm. Complete survey performed and was unremarkable on the submitted images as in PACS. No discrete anomalies identified on survey imaging by technologist. Active fetus. Three-vessel cord with satisfactory umbilical cord insertion. 4- chamber heart noted. Survey of brain & ventricles Unremarkable. Face and neck survey unremarkable. Diaphragm and chest views unremarkable. Abdomen: Both kidneys noted and unremarkable. Stomach noted and satisfactory. Spine: Survey of the spine satisfactory with no anomalies identified nor imaged. Both arms and legs noted. Amniotic Fluid: Adequate. Maternal adnexa: No significant findings. Measurements: Average ultrasound age 20weeks 2days. Gestational Age 20weeks 2days Estimated due date by ultrasound age 0410/11/2020. Estimated weight 341g BPD = 20weeks 2days OFD = 20 weeks 3 days HC = 19weeks 5days AC = 20weeks 3days FL = 20weeks 2days Growth Percentile= 51% Heart Rate = 152bpm Cerebellum = 20weeks 4days Humerus = 20weeks 3days HC/AC is 1.12 CI is 0.78 FL/BPD is 0.7 FL/AC is 0.22 IMPRESSION: Live IUP with an average ultrasound age of 20 weeks and 2 days. No obvious anomalies. Please see above for detail. Dictated by: David Marroquin MD 05/27/2020 07:12 David Marroquin MD in [place] 05/27/2020 07:12
== END ==
PROVIDERS: PCP Internal Medicine Adolescent Medicine; Visit Provider Nurse Practitioner Obstetrics & Gynecology
DX: Z34.90 Encounter for supervision of normal pregnancy, unspecified, unspecified trimester (principal); Z3A.20 20 weeks gestation of pregnancy
CPT/HCPCS: 76805

== ENCOUNTER → 2020-07-15 07:12 | Outpatient (CLI) | payer OTHER, SELFPAY ==
[2020-07-15 09:04] LABS: Glucose,Fasting 100 mg/dl (74-100)
[2020-07-15 09:25] LABS: Glucose 1 Hour 98 mg/dL (74-100)
== END ==
PROVIDERS: Visit Provider Nurse Practitioner Obstetrics & Gynecology
DX: Z34.90 Encounter for supervision of normal pregnancy, unspecified, unspecified trimester (principal); Z3A.24 24 weeks gestation of pregnancy
CPT/HCPCS: 36415; 82951

== ENCOUNTER → 2020-09-13 17:20 | Outpatient (CLI) | payer OTHER, SELFPAY | PROVIDERS: Visit Provider Nurse Practitioner Obstetrics & Gynecology | DX: Z34.90 Encounter for supervision of normal pregnancy, unspecified, unspecified trimester (principal) | CPT/HCPCS: 86403 ==

== ENCOUNTER → 2020-10-08 09:36 | Outpatient (CLI) | payer OTHER, SELFPAY | PROVIDERS: PCP Nurse Practitioner Obstetrics & Gynecology; Visit Provider Nurse Practitioner Obstetrics & Gynecology | DX: Z11.52 Encounter for screening for COVID-19 (principal); Z34.90 Encounter for supervision of normal pregnancy, unspecified, unspecified trimester | CPT/HCPCS: U0003 ==

== ENCOUNTER 2020-10-09 05:06 | Inpatient (IN) | payer OTHER, SELFPAY ==
[2020-10-09 05:21] VITALS: BMI 42.7
[2020-10-09 06:08] LABS: Basophils % 0.2 % (0.1-2.0); Eosinophils # 0.1 K/mm3 (0.0-0.4); Eosinophils % 1.2 % (0.1-12.0); Hematocrit 37.1 % (37.0-47.0); Hemoglobin 12.5 g/dL (12.2-16.2); Lymphocytes # 2.2 K/mm3 (0.7-4.5); Lymphocytes % 19.7 % (10-50); Mean Corpuscular HGB Conc 33.8 g/dL (31.8-35.4); Mean Corpuscular Hemoglobin 28.4 pg (27.0-31.2); Mean Corpuscular Volume 83.8 fl (81-99); Mean Platelet Volume 8.6 fl (7.4-10.4); Monocytes # 0.6 K/mm3 (0.1-1.0); Monocytes % 5.4 % (1.7-9.3); Neutrophils # 8.2 K/mm3 (1.8-7.8); Neutrophils % 73.5 % (37.0-80.0); Platelet Count 277 K/mm3 (142-424); Red Blood Count 4.42 M/mm3 (4.20-5.40); Red Cell Distribution Width 14.8 % (11.5-17.5); White Blood Count 11.1 K/mm3 (4.8-10.8)
[2020-10-09 06:13] VITALS: BP 126/81; PULSE 91; RESP 18; TEMP 37; O2SAT 98; BMI 42.7
[2020-10-09 06:14] LABS: Microscopic, Urine URINE MICROSCOPIC (MICROSCOPIC)
[2020-10-09 06:21] LABS: Appearance,Urine CLEAR (Clear); Blood, Urine Negative (Negative); Color,Urine YELLOW (Yellow); Glucose,Urine (UA) Negative (Negative); Ketones,Urine TRACE (Negative); Leukocyte Esterase,Urine TRACE (Negative); Nitrate,Urine Negative (Negative); Protein,Urine TRACE (Negative); Specific Gravity, Urine 1.025 (1.005-1.030)
[2020-10-09 06:30] LABS: Bilirubin,Urine 1+ (Negative)
[2020-10-09 06:31] LABS: Barbiturates Screen,Urine Negative ng/ml (<200)
[2020-10-09 06:32] LABS: Amphetamine/Metha Screen,Urine Negative ng/ml (<1000); Benzodiazepines Screen,Urine Negative ng/ml (<200)
[2020-10-09 06:33] LABS: Cannabinoid Screen,Urine Negative ng/ml (<50); RBC,Urine Occasional #/hpf (0-3)
[2020-10-09 06:34] LABS: Cocaine Screen,Urine Negative ng/ml (<300)
[2020-10-09 06:35] LABS: Methadone Screen,Urine Negative ng/ml (<300); Opiate Screen,Urine Negative ng/ml (<300)
[2020-10-09 06:36] LABS: Phencyclidine Screen,Urine Negative ng/ml (<25)
[2020-10-09 07:54] VITALS: BP 124/67; PULSE 74; RESP 18; TEMP 36.7; O2SAT 99
--- NOTE | 2020-10-09 08:40 | HMH.LABNOT ---
Labor Note - Subjective: Date: 10/09/20 Time: 08:40 irregular contractions - Objective: NST:: Reactive Contractions:: every 2-3 minutes Cervical Dilation:: 3 Effacement:: 50% Station: -2 Membranes: artificially ruptured - Fetus: Monitoring?: Yes monitoring type:: Internal Comment:: I ruptured her membranes and inserted an IUPC as well as a scalp clip - Assessment: Labor progressing?: Yes Cephalopelvic disproportion?: No Patient Problems: All Active Problems (Acute) - Plan: Anesthesia for epidural?: No Continue to labor down?: Yes Plan for ?: No Continue to monitor?: Yes Start pushing?: No
--- NOTE | 2020-10-09 08:41 | HMH.OBAPHP ---
OB - H&P: HPI Antepartum - History of Present Illness Chief complaint: Term History of present illness: She is a 4 para 3 at 39+ weeks gestational age. As result of this we have elected to induce her labor at term. - History of Present Criteria for establishing EDC:: LMP confirmed by 1st trimester US care: good care Ultrasounds: normal 1st trimester US, normal mid trimester US Obstetrical complications: none Medical complications: none [facility] History I have reviewed the patient's past medical history: Yes Medical History: Reports:: Heart Murmur Denies:: Seizures *Have you ever received a pneumonia vaccine?: No *Have you received a flu vaccine this season?: No Other Medical History: Denies: Blood Transfusion Reaction Laterality Cases: Bilateral: Tonsillectomy Other Surgeries: Yes: Cholecystectomy. No: Amputation: No Fractures: No - *Social History Smoking Status: Never smoker Alcohol Intake: never Alcohol Intake Frequency:: other Substance Use Type: denies use *Occupational Status:: employed Housing: other Household Members: other *Travel in the last 8 weeks: None Family Hx:: Asthma, Hypertension, Diabetes Para: 3 Review of Systems - Review of Systems Review of systems:: pertinent systems reviewed and negative unless documented below Meds Home Medications Medication Instructions Recorded Confirmed Type No Known Home Medications 10/09/20 10/09/20 History Allergies Allergy/AdvReac Type Severity Reaction Status Date / Time ciprofloxacin [From CIPRO] Allergy Unknown Verified 10/04/20 16:43 OB - H&P: Exam - Physical Exam Vital signs: Temp Pulse Resp BP Pulse Ox 98.0 F 74 18 124/67 99 10/09/20 07:54 10/09/20 07:54 10/09/20 07:54 10/09/20 07:54 10/09/20 07:54 - Constitutional no acute distress - Routine HEENT Exam Head: Present: normocephalic Eye: Present: EOMI, PERRL ENT: Present: mucous membranes moist - Routine Neck Exam Present: supple, full ROM - Routine Respiratory Exam Absent: accessory muscle use (good air entry bilaterally), respiratory distress, wheezes, crackles - Routine Cardiovascular Exam Present: RRR. Absent: murmur - Routine Abdominal Exam Present: soft, normoactive bowel sounds. Absent: tenderness, distended, guarding - Routine Rectal Exam Patient deferred: visual exam, digital exam - Routine Exam Patient deferred: external exam, groin exam, perineal exam - Routine Extremities Exam Present: full ROM. Absent: cyanosis, edema - Routine Skin Exam Present: intact. Absent: cyanosis - Routine Neurological Exam Present: alert, oriented X3 - Routine Psychiatric Exam Present: normal affect OB - Results - Labs Labs: Short CBC 10/09/20 Range/Units 05:45 WBC 11.1 H (4.8-10.8) K/mm3 Hgb 12.5 (12.2-16.2) g/dL Hct 37.1 (37.0-47.0) % Plt Count 277 (142-424) K/mm3 Urine 10/09/20 Range/Units 05:49 Urine Color Yellow (Yellow) Urine Appearance Clear (Clear) Urine pH 6.0 (5.0-8.5) Ur Specific [place] 1.025 (1.005-1.030) Urine Protein Trace (Negative) Urine Glucose (UA) Negative (Negative) OB - A/P Antepartum (1) Normal delivery Status: Acute - Additional Plan Planning to breastfeed?: Yes Plan: induction Additional Information:: We have elected to induce her labor at term.
--- NOTE | 2020-10-09 11:58 | HMH.DN ---
- Delivery Note Delivery Date:: 10/09/20 Delivery Time:: 11:49 Anesthesia Type: None Was labor medically induced?: Yes Induction method: per pitocin protocol Gestational age (weeks): 39 delivered prior to 39 weeks?: No Gender: Male at 1 minute: 8 at 5 minutes: 9 Delivery Procedure:: She is a 25-year-old 4 para 3 at 39+ weeks gestational age. She was feeling lots of pressure and discomfort so we elected to deliver her at term. She was started on IV oxytocin and had her membranes ruptured. She progressed to full dilation and delivered spontaneously a liveborn male child at 11:49 AM on the morning of October 09, 2020. On deliver the head the anterior shoulder then easily delivered followed by the rest the infant's body atraumatically. The baby was vigorous. We allowed the cord to continue to pulsate for 1 minute. The oropharynx and nasopharynx were bulb suction. The cord was then doubly clamped and cut and the infant was placed on the mother's abdomen for further care. We then obtained cord blood as well as cord pH. She received IV oxytocin using gentle traction on the cord and countertraction on the fundus I was able to easily deliver the placenta intact. He had a normal three-vessel cord. There were no perineal or vaginal lacerations. Estimated blood loss was approximately 300 cc. Placental Delivery Description: Spontaneous
[2020-10-09 13:05] VITALS: BP 120/59; PULSE 79; RESP 17; TEMP 36.4
[2020-10-09 16:55] VITALS: BP 128/83; PULSE 61; RESP 16; TEMP 36.6; O2SAT 100
[2020-10-09 20:00] VITALS: BP 139/71; PULSE 58; RESP 18; TEMP 36.8; O2SAT 100
[2020-10-10 07:08] LABS: Hemoglobin 12.4 g/dL (12.2-16.2)
[2020-10-10 07:57] VITALS: BP 110/68; PULSE 66; RESP 18; TEMP 36.8; O2SAT 100
[2020-10-10 11:53] VITALS: BP 129/69; PULSE 63; RESP 16; TEMP 36.4; O2SAT 99
--- NOTE | 2020-10-10 14:05 | HMH.ACPN2 ---
Internal Medicine - PN: Subj *Date: 10/10/20 *Time: 14:05 Interval history: She is doing very well. She is eating and drinking and ambulating. She is bottlefeeding. Her lochia is normal. Exam Vital signs and Labs for Last 24 Hours: Temp Pulse Resp BP Pulse Ox 98.3 F 66 18 110/68 100 10/10/20 07:57 10/10/20 07:57 10/10/20 07:57 10/10/20 07:57 10/10/20 07:57 Laboratory Results - last 24 hr 10/10/20 06:19: Hgb 12.4, Hct 36.0 L I & O for Last 24 hours: Intake & Output 10/08/20 10/09/20 10/10/20 10/11/20 11:59 11:59 11:59 11:59 Weight 234 lb - Constitutional no acute distress - *Routine HEENT Exam Head: Present: normocephalic Eye: Present: EOMI, PERRL ENT: Present: mucous membranes moist Assessment and Plan (1) Normal delivery Status: Acute Category: Medical Code(s): O80 - Encounter for full-term uncomplicated delivery - Assessment and plan all Dx Assessment and Plan for all problems:: She is doing very well 1 day post vaginal delivery. Her lochia is normal. We will plan to send her home tomorrow.
[2020-10-10 16:07] VITALS: BP 109/72; PULSE 60; RESP 18; TEMP 36.6
[2020-10-10 19:57] VITALS: BP 130/80; PULSE 72; RESP 17; TEMP 36.6; O2SAT 98
[2020-10-11 04:30] VITALS: BP 144/84; PULSE 53; RESP 17; TEMP 36.7; O2SAT 98
[2020-10-11 07:40] VITALS: BP 134/71; PULSE 72; RESP 18; TEMP 36.7; O2SAT 100
--- NOTE | 2020-10-11 09:27 | P.DS_ITS ---
General - General Admission date:: 10/09/20 Discharge date: 10/11/20 HPI - History of Present Illness History of present illness: She is a 25-year-old 5 now para 4 aborta 1 who was 39 weeks gestational age. She was having a few contractions and as result that we elected to induce her labor at term. Hospital Course Hospital Course: She was started on IV oxytocin had her membranes ruptured. She progressed to full dilation and delivered spontaneously a liveborn male child at 11:49 AM on the morning of October 09, 2020. The baby weighed 8 pounds 6 ounces and was 19 inches long. He had Apgars of 8 at 1 minute and 9 at 5 minutes. She has done well and has remained afebrile throughout her hospitalization. She is eating and drinking and ambulating. She is breast- feeding. Her lochia is normal. She has a positive blood, she is rubella immune and was group B streptococcus negative. Her beam dyer operator is Dr. Moreno. She is discharged home to follow-up with me in approximately 2 weeks time. She will continue with her vitamins and iron. She was given the usual instructions with respect to limiting her activity, driving and sexual activity. Her condition on discharge is stable and improved. She is just taking [id number] analgesics. Rhogam Administration: Not Indicated Objective Vital signs: Temp Pulse Resp BP Pulse Ox 98.1 F 72 18 134/71 100 10/11/20 07:40 10/11/20 07:40 10/11/20 07:40 10/11/20 07:40 10/11/20 07:40 no acute distress - *Routine HEENT Exam Head: Present: normocephalic Eye: Present: EOMI, PERRL ENT: Present: mucous membranes moist DS: Diagnosis - Discharge Diagnosis (1) Normal delivery Status: Acute Discharge Plan - Patient Discharge Instructions ACTIVITY: No heavy lifting DIET: continue same diet Additional Instructions: NOTHING IN VAGINA FOR 6 WEEKS NO HEAVY LIFTING OR STRENUOUS ACTIVITY FOLLOW-UP WITH DR. PHAM ON Patient Instructions: Depression, Hemorrhage, DI for Labor and Delivery, Vaginal , DI for Pre-eclampsia, [facility] Post Discharge Instructions, Preventing the Spread of Coronavirus Discharge Instructions - Follow up Plan Follow up with: Yossi Pham MD [Staff Physician] - 10/24/20 8:30 am Disposition: Home, Self-Prison Medications: Home Medications Medication Instructions Recorded Confirmed Type No Known Home Medications 10/09/20 10/09/20 History Prescriptions/Medication Reconciliation: Continued No Known Home Medications - Problem Reconciliation Problems Reviewed?: Yes
== END 2020-10-11 09:50 | disposition home or self-care (01) | DRG 807 ==
PROVIDERS: Admitting Provider Nurse Practitioner Obstetrics & Gynecology; PCP Internal Medicine Adolescent Medicine; Visit Provider Nurse Practitioner Obstetrics & Gynecology
DX: O80 Encounter for full-term uncomplicated delivery (principal); Z37.0 Single live birth; Z3A.39 39 weeks gestation of pregnancy
CPT/HCPCS: 59409; 59025; 80305; 81001; 82800; 85014; 85018; 85025; 86850; 94761; C1758; G0283; J0595; J2405; U0003

== ENCOUNTER → 2021-03-28 09:04 | Outpatient (CLI) | payer OTHER, SELFPAY | PROVIDERS: PCP Internal Medicine Adolescent Medicine; Visit Provider Nurse Practitioner | DX: Z20.822 Contact with and (suspected) exposure to COVID-19 (principal); U07.1 COVID-19 | CPT/HCPCS: C9803; U0003; U0005 ==

== ENCOUNTER → 2021-09-06 09:37 | Outpatient (CLI) | payer OTHER, SELFPAY ==
[2021-09-06 10:39] LABS: HCG,Quantitative 72 mIU/ml (0-5.42)
== END ==
PROVIDERS: PCP Internal Medicine Adolescent Medicine; Visit Provider Obstetrics & Gynecology
DX: Z34.90 Encounter for supervision of normal pregnancy, unspecified, unspecified trimester (principal)
CPT/HCPCS: 36415; 84702

== ENCOUNTER → 2021-09-08 08:03 | Outpatient (CLI) | payer OTHER, SELFPAY ==
[2021-09-08 11:45] LABS: HCG,Quantitative 253 mIU/ml (0-5.42)
== END ==
PROVIDERS: Visit Provider Obstetrics & Gynecology
DX: Z34.90 Encounter for supervision of normal pregnancy, unspecified, unspecified trimester (principal)
CPT/HCPCS: 36415; 84702

== ENCOUNTER → 2021-09-10 07:09 | Outpatient (CLI) | payer OTHER, SELFPAY ==
[2021-09-10 08:36] LABS: HCG,Quantitative 599 mIU/ml (0-5.42)
== END ==
PROVIDERS: Visit Provider Obstetrics & Gynecology
DX: Z34.90 Encounter for supervision of normal pregnancy, unspecified, unspecified trimester (principal)
CPT/HCPCS: 36415; 84702

== ENCOUNTER → 2021-09-14 07:06 | Outpatient (CLI) | payer OTHER, SELFPAY ==
[2021-09-14 07:14] LABS: Microscopic, Urine URINE MICROSCOPIC (MICROSCOPIC)
[2021-09-14 08:06] LABS: Appearance,Urine CLEAR (Clear); Bilirubin,Urine Negative (Negative); Blood, Urine TRACE-I (Negative); Color,Urine YELLOW (Yellow); Glucose,Urine (UA) Negative (Negative); Ketones,Urine Negative (Negative); Leukocyte Esterase,Urine TRACE (Negative); Nitrate,Urine Negative (Negative); PH,Urine 7.5 (5.0-8.5); Protein,Urine Negative (Negative); Specific Gravity, Urine 1.015 (1.005-1.030)
[2021-09-14 11:35] LABS: HCG,Quantitative 3598 mIU/ml (0-5.42)
== END ==
PROVIDERS: Visit Provider Obstetrics & Gynecology
DX: Z34.90 Encounter for supervision of normal pregnancy, unspecified, unspecified trimester (principal); R30.9 Painful micturition, unspecified
CPT/HCPCS: 36415; 81001; 84702

== ENCOUNTER → 2021-09-14 12:32 | Outpatient (CLI) | payer OTHER, SELFPAY ==
--- NOTE | 2021-09-14 12:32 | US_ITS ---
FINAL REPORT CLINICAL HISTORY: positive HCG with IUD FINDINGS: Transvaginal sonographic images of the pelvis were obtained. There is an 8 mm ovoid fluid collection within the endometrial cavity which may represent a small gestational sac versus pseudo gestational sac. No pole is identified. The endometrium measures 10, which is within normal limits. The right ovary measures 3.1 cm in length. There is a 1.6 cm hypoechoic focus within the right ovary with peripheral vascularity. This may represent ectopic versus corpus luteum cyst. The left ovary measures 2.7 cm in length and has an unremarkable appearance. Normal blood flow seen to the ovaries. There is no evidence of free fluid. IMPRESSION: Small gestational sac versus pseudo gestational sac. Can be further evaluated with follow-up ultrasound. Small hypoechoic mass in the right ovary, ectopic versus corpus luteum cyst. Also can be further evaluated with follow-up ultrasound. Reviewed, Interpreted and Dictated by Collin Clark III, MD Transcribed by Marleen Olson Authenticated by Collin Clark III, MD on 09/14/2021 02:19:55 PM [facility]
== END ==
PROVIDERS: PCP Internal Medicine Adolescent Medicine; Visit Provider Obstetrics & Gynecology
DX: Z32.01 Encounter for pregnancy test, result positive (principal)
CPT/HCPCS: 76830

== ENCOUNTER → 2021-09-18 07:23 | Outpatient (CLI) | payer OTHER, SELFPAY ==
[2021-09-18 09:27] LABS: HCG,Quantitative 15727 mIU/ml (0-5.42)
--- NOTE | 2021-09-18 09:51 | US_ITS ---
FINAL REPORT CLINICAL HISTORY: Positive HCG with IUD COMPARISON: September 14, 2021 FINDINGS: Transvaginal sonographic images of the pelvis were obtained. A gestational sac is present in the uterus. A yolk sac is now identified with a diameter of 0.3 cm. The left ovary is unremarkable. There is a 1.8 cm cyst on the right ovary which may represent a corpus luteum cyst. There is no free fluid. The uterus is otherwise normal. IMPRESSION: Yolk sac now identified within the gestational sac consistent with an early . Additional follow-up may be helpful. Small cyst right ovary. Reviewed, Interpreted and Dictated by Collin Clark III, MD Transcribed by Marleen Olson Authenticated by Collin Clark III, MD on 09/18/2021 03:03:[address] [facility]
== END ==
PROVIDERS: PCP Internal Medicine Adolescent Medicine; Visit Provider Obstetrics & Gynecology
DX: Z32.01 Encounter for pregnancy test, result positive (principal); O36.80X0 Pregnancy with inconclusive fetal viability, not applicable or unspecified
CPT/HCPCS: 36415; 76830; 84702

== ENCOUNTER → 2021-09-27 13:58 | Outpatient (CLI) | payer OTHER, SELFPAY ==
--- NOTE | 2021-09-27 13:58 | US_ITS ---
FINAL REPORT CLINICAL HISTORY: Dates fu FINDINGS: Sonographic images of the pelvis were obtained. A single, living intrauterine is noted. A yolk sac is present and measures 0.52 cm. [place] to rump length measures 0.57 cm which corresponds to 6 weeks 3 days gestation. Heartbeat is identified and measures 112 beats per minute. There is a hypoechoic cystic focus within the right ovary measuring 2.3 x 1.5 cm. The left ovary is within normal limits. There is a hypoechoic focus measuring 9 mm in the uterus which may represent a small fibroid. IMPRESSION: Single, living, intrauterine gestation with 7 weeks 0 days gestational age. Hypoechoic cystic focus within the right ovary. Hypoechoic focus within the uterus which may represent a small fibroid. Reviewed, Interpreted and Dictated by Deejay Mckeon MD Transcribed by Marleen Olson Authenticated by Deejay Mckeon MD on 09/27/2021 04:24:40 PM [facility]
== END ==
PROVIDERS: PCP Internal Medicine Adolescent Medicine; Visit Provider Obstetrics & Gynecology
DX: Z34.90 Encounter for supervision of normal pregnancy, unspecified, unspecified trimester (principal)
CPT/HCPCS: 76801

== ENCOUNTER → 2021-10-04 12:14 | Outpatient (CLI) | payer OTHER, SELFPAY ==
[2021-10-04 13:06] LABS: Basophils # 0.1 K/mm3 (0-0.2); Basophils % 0.8 % (0.1-2.0); Eosinophils # 0.1 K/mm3 (0.0-0.4); Eosinophils % 1.4 % (0.1-12.0); Hematocrit 42.8 % (37.0-47.0); Hemoglobin 13.9 g/dL (12.2-16.2); Lymphocytes # 1.4 K/mm3 (0.7-4.5); Mean Corpuscular HGB Conc 32.5 g/dL (31.8-35.4); Mean Corpuscular Volume 86.2 fl (81-99); Mean Platelet Volume 8.8 fl (7.4-10.4); Monocytes # 0.4 K/mm3 (0.1-1.0); Monocytes % 4.2 % (1.7-9.3); Neutrophils # 6.6 K/mm3 (1.8-7.8); Neutrophils % 77.6 % (37.0-80.0); Platelet Count 317 K/mm3 (142-424); Red Blood Count 4.96 M/mm3 (4.20-5.40); White Blood Count 8.5 K/mm3 (4.8-10.8)
[2021-10-05 07:21] LABS: Rubella Antibodies, IgG 2.89 index (Immune >0.99)
[2021-10-05 08:42] LABS: HIV Screen 4th Generation wRfx Non Reactive (Non Reactive)
[2021-10-05 11:17] LABS: Hepatitis B Surface Antigen Negative (Negative); Hepatitis C Antibody 0.2 s/co ratio (0.0-0.9)
[2021-10-05 14:16] LABS: Rapid Plasma Reagin Ab Titer Non Reactive (NonRea<1:1)
== END ==
PROVIDERS: Visit Provider Obstetrics & Gynecology
DX: Z34.90 Encounter for supervision of normal pregnancy, unspecified, unspecified trimester (principal)
CPT/HCPCS: 36415; 85025; 86592; 86703; 86762; 86850; 87340; 87380; G0432

== ENCOUNTER → 2021-12-27 13:28 | Outpatient (CLI) | payer OTHER, SELFPAY ==
--- NOTE | 2021-12-27 13:28 | US_ITS ---
FINAL REPORT CLINICAL HISTORY: Ob complete; anatomy survey; obesity FINDINGS: There is a single live intrauterine gestation. Presentation is breech. The cervix is closed and measures 4.2 cm. Placenta is anterior, high, grade 1. Cardiac activity is confirmed at 146 bpm. Three-vessel cord with satisfactory umbilical cord insertion. Four-chamber heart is noted. AMNIOTIC FLUID: Appropriate amount. MEASUREMENTS: ULTRASOUND AGE: 19 weeks 4 days. GESTATION AGE: 20 weeks 0 days. ESTIMATED WEIGHT: 298 g GROWTH PERCENTILE: 21% BPD: 4.5 cm corresponding with 19 weeks 6 days. OFD: 5.8 cm corresponding with 20 weeks 1 days. HC: 16.4 cm corresponding with 19 weeks 1 days. AC: 14.2 cm corresponding with 19 weeks 5 days. FL: 3.1 cm corresponding with 19 weeks 4 days. CEREBELLUM: 1.9 cm corresponding with 20 weeks 0 days. HC/AC: 1.15 CI: 78% FL/BPD: 68% FL/AC: 22% IMPRESSION: Single living IUP with an ultrasound age of 19 weeks 4 days. Reviewed, Interpreted and Dictated by Deejay Mckeon MD Transcribed by Marleen Olson Authenticated and [facility]
== END ==
PROVIDERS: PCP Internal Medicine Adolescent Medicine; Visit Provider Obstetrics & Gynecology
DX: Z34.90 Encounter for supervision of normal pregnancy, unspecified, unspecified trimester (principal)
CPT/HCPCS: 76811

== ENCOUNTER → 2022-02-09 08:11 | Outpatient (CLI) | payer OTHER, SELFPAY ==
[2022-02-09 08:31] LABS: Basophils % 0.2 % (0.1-2.0); Eosinophils # 0.2 K/mm3 (0.0-0.4); Eosinophils % 1.5 % (0.1-12.0); Hematocrit 38.3 % (37.0-47.0); Hemoglobin 12.4 g/dL (12.2-16.2); Lymphocytes # 1.8 K/mm3 (0.7-4.5); Lymphocytes % 17.7 % (10-50); Mean Corpuscular HGB Conc 32.5 g/dL (31.8-35.4); Mean Corpuscular Hemoglobin 28.7 pg (27.0-31.2); Mean Corpuscular Volume 88.3 fl (81-99); Mean Platelet Volume 8.1 fl (7.4-10.4); Monocytes # 0.4 K/mm3 (0.1-1.0); Monocytes % 3.5 % (1.7-9.3); Neutrophils % 77.1 % (37.0-80.0); Platelet Count 312 K/mm3 (142-424); Red Blood Count 4.33 M/mm3 (4.20-5.40); Red Cell Distribution Width 13.9 % (11.5-17.5); White Blood Count 10.3 K/mm3 (4.8-10.8)
[2022-02-09 09:07] LABS: Glucose,Fasting 106 mg/dl (74-100)
[2022-02-09 10:15] LABS: Glucose 1 Hour 108 mg/dL (74-100)
== END ==
PROVIDERS: PCP Internal Medicine Adolescent Medicine; Visit Provider Obstetrics & Gynecology
DX: Z34.90 Encounter for supervision of normal pregnancy, unspecified, unspecified trimester (principal)
CPT/HCPCS: 36415; 82951; 85025

== ENCOUNTER → 2022-03-19 15:09 | Outpatient (CLI) | payer OTHER, SELFPAY ==
--- NOTE | 2022-03-19 15:09 | US_ITS ---
FINAL REPORT CLINICAL HISTORY: LGA FINDINGS: There is a single live intrauterine gestation. Presentation is cephalic. Placenta is anterior and grade 2. Cardiac activity is confirmed at 139 bpm. movement is noted. AMNIOTIC FLUID: Appropriate amount. MEASUREMENTS: ULTRASOUND AGE: 31 weeks 2 days. GESTATION AGE: 31 weeks 5 days. ESTIMATED WEIGHT: 1715 g GROWTH PERCENTILE: 23% BPD: 7.8 cm consistent with 31 weeks 2 days. OFD: 10.2 cm consistent with 31 weeks 4 days. HC: 28.4 cm consistent with 31 weeks 2 days. AC: 27.5 cm consistent with 31 weeks 4 days. FL: 5.8 cm consistent with 30 weeks 4 days. HC/AC: 1.03 CI: 77% FL/BPD: 75% FL/AC: 21% IMPRESSION: Single living IUP with an ultrasound age of 31 weeks 2 days. Reviewed, Interpreted and Dictated by Collin Clark III, MD Transcribed by Yohan Suggs Authenticated and . [facility]
== END ==
PROVIDERS: PCP Internal Medicine Adolescent Medicine; Visit Provider Obstetrics & Gynecology
DX: O36.60X0 Maternal care for excessive fetal growth, unspecified trimester, not applicable or unspecified (principal)
CPT/HCPCS: 76816

== ENCOUNTER → 2022-04-18 03:30 | Outpatient (CLI) | payer OTHER, SELFPAY | LOC: LAB 04-19 06:32 → LAB.DROPOF 04-19 06:37 | PROVIDERS: Visit Provider Obstetrics & Gynecology | DX: Z34.90 Encounter for supervision of normal pregnancy, unspecified, unspecified trimester (principal) | CPT/HCPCS: 86403 ==

== ENCOUNTER → 2022-04-22 14:58 | Outpatient (CLI) | payer OTHER, SELFPAY ==
--- NOTE | 2022-04-22 14:59 | US_ITS ---
FINAL REPORT CLINICAL HISTORY: lga FINDINGS: There is a single live intrauterine gestation. Presentation is cephalic. Placenta is anterior. Cardiac activity is confirmed at 153 bpm. The fetus is active. Three-vessel cord with satisfactory umbilical cord insertion. Four-chamber heart is noted. brain and ventricles are unremarkable. Chest and diaphragm are unremarkable. ABDOMEN: Both kidneys are unremarkable. Stomach is unremarkable. SPINE: No anomalies identified. Both arms and legs noted. AMNIOTIC FLUID: Appropriate amount. MEASUREMENTS: ULTRASOUND AGE: 35 weeks 4 days. GESTATION AGE: 36 weeks 4 days. ESTIMATED WEIGHT: 2858 g GROWTH PERCENTILE: 42% BPD: 8.7 cm consistent with 35 weeks 2 days. OFD: 11.1 cm consistent with 36 weeks 0 days. HC: 31.3 cm consistent with 35 weeks 1 days. AC: 33.8 cm consistent with 37 weeks 6 days. FL: 6.5 cm consistent with 33 weeks 4 days. HC/AC: 0.93 CI: 79% FL/BPD: 75% FL/AC: 19% IMPRESSION: Single living IUP with an ultrasound age of 35 weeks 4 days. Reviewed, Interpreted and Dictated by Deejay Mckeon MD Transcribed by Yohan Suggs Authenticated and [facility]
== END ==
PROVIDERS: PCP Pediatrics; Visit Provider Obstetrics & Gynecology
DX: O36.60X0 Maternal care for excessive fetal growth, unspecified trimester, not applicable or unspecified (principal)
CPT/HCPCS: 76816

== ENCOUNTER 2022-05-02 05:02 | Inpatient (IN) | payer OTHER, SELFPAY ==
[2022-05-02 05:16] VITALS: BMI 45.7
[2022-05-02 06:25] LABS: Microscopic, Urine URINE MICROSCOPIC (MICROSCOPIC)
[2022-05-02 06:32] VITALS: BP 121/56; PULSE 86; RESP 18; TEMP 36.6; O2SAT 100; BMI 45.7
[2022-05-02 06:35] LABS: Basophils % 0.2 % (0.1-2.0); Eosinophils # 0.1 K/mm3 (0.0-0.4); Eosinophils % 1.2 % (0.1-12.0); Hemoglobin 12.2 g/dL (12.2-16.2); Lymphocytes % 21.8 % (10-50); Mean Corpuscular Hemoglobin 28.1 pg (27.0-31.2); Mean Corpuscular Volume 85.2 fl (81-99); Mean Platelet Volume 8.7 fl (7.4-10.4); Monocytes # 0.3 K/mm3 (0.1-1.0); Monocytes % 3.2 % (1.7-9.3); Neutrophils # 6.9 K/mm3 (1.8-7.8); Neutrophils % 73.5 % (37.0-80.0); Platelet Count 291 K/mm3 (142-424); Red Blood Count 4.35 M/mm3 (4.20-5.40); White Blood Count 9.3 K/mm3 (4.8-10.8)
[2022-05-02 06:36] LABS: Appearance,Urine SL CLOUDY (Clear); Blood, Urine Negative (Negative); Color,Urine YELLOW (Yellow); Glucose,Urine (UA) Negative (Negative); Ketones,Urine TRACE (Negative); Leukocyte Esterase,Urine TRACE (Negative); Nitrate,Urine Negative (Negative); Protein,Urine TRACE (Negative)
[2022-05-02 06:56] LABS: Bilirubin,Urine 1+ (Negative)
[2022-05-02 07:14] LABS: Coronavirus 19, PCR Not Detected (NotDetected); Influenza A, PCR Not Detected (NotDetected); Influenza B, PCR Not Detected (NotDetected)
[2022-05-02 07:15] LABS: Bacteria,Urine 1+ /lpf; RBC,Urine Occasional #/hpf (0-3); WBC,Urine Occasional #/hpf (0-3)
[2022-05-02 07:31] VITALS: BP 124/61; PULSE 86; RESP 19; TEMP 36.6; O2SAT 100
--- NOTE | 2022-05-02 19:49 | EXP.HP ---
History of Present Illness *Admission Date: 05/02/22 *Reason for visit:: Induction of labor *History of present illness: 27 yo @ 38 0 care at [facility] complicated by IUD failure resulting in IUD removed early in without complication Measuring large for dates with normal EFW but polyhydramnios Also reporting decreased movement so she was scheduled for IOL [facility] Medical History (Updated 05/02/22 @ 19:57 by Janet Terrell MD) No significant past medical history Family History No significant family history Social History Smoking Status: Never smoker alcohol intake: never substance use type: denies use current occupational status: employed Travel in the last 8 weeks: None household members: other housing: other Review of Systems Constitutional Constitutional: Reports system reviewed and no additional complaints, except as documented and Denies headache(s) ENT Ears, Nose, Mouth, and Throat: Denies headache(s) *Genitourinary Genitourinary: Denies abnormal vaginal bleeding *Neurologic Neurologic: Denies headache(s) and Denies other visual disturbances Meds Home Medications and Allergies Home Medications Medication Instructions Recorded Confirmed Type vits no.126-ferrous fum 1 tab PO DAILY Supplement 05/02/22 05/02/22 History 28 mg iron-folic acid 800 mcg tablet (Classic ) New Prescriptions to Start Prescriptions: Allergies Allergy/AdvReac Type Severity Reaction Status Date / Time ciprofloxacin [From CIPRO] Allergy Unknown Verified 04/25/22 15:42 Exam Data for Last 24 hours Vital signs and Labs for Last 24 Hours: Temp Pulse Resp BP Pulse Ox 97.9 F 86 19 124/61 100 05/02/22 07:31 05/02/22 07:31 05/02/22 07:31 05/02/22 07:31 05/02/22 07:31 Laboratory Results - last 24 hr 05/02/22 05:30: WBC 9.3, RBC 4.35, Hgb 12.2, Hct 37.0, MCV 85.2, MCH 28.1, MCHC 33.0, RDW 15.0, Plt Count 291, MPV 8.7, Neut % (Auto) 73.5, Lymph % (Auto) 21.8, [place] % (Auto) 3.2, Eos % (Auto) 1.2, Baso % (Auto) 0.2, Neut # (Auto) 6.9, Lymph # (Auto) 2.0, [place] # (Auto) 0.3, Eos # (Auto) 0.1, Baso # (Auto) 0.0 05/02/22 05:30: Urine Color Yellow, Urine Appearance Sl cloudy, Urine pH 7.0, Ur Specific [place] 1.020, Urine Protein Trace, Urine Glucose (UA) Negative, Urine Ketones Trace, Urine Blood Negative, Urine Nitrate Negative, Urine Bilirubin 1+ A, Urine Urobilinogen 2.0, Ur Leukocyte Esterase Trace, Urine RBC Occasional, Urine WBC Occasional, Ur Squamous Epith Cells 5-10, Urine Bacteria 1+ 05/02/22 05:30: SARS-CoV-2 (PCR) Not detected, Influenza A Untype (PCR) Not detected, Influenza Type B (PCR) Not detected 05/02/22 05:30: Blood Type A Positive, Antibody Screen Negative I & O for Last 24 hours: Intake & Output 04/30/22 05/01/22 05/02/22 05/03/22 11:59 11:59 11:59 11:59 Weight 250 lb Constitutional Constitutional: no acute distress *Routine HEENT Exam Head: Present normocephalic Eye: Absent conjunctival icterus or scleral injection ENT: Present mucous membranes moist *Routine Neck Exam Neck: Present supple *Routine Respiratory Exam Respiratory: Present CTA bilaterally; Absent respiratory distress *Routine Cardiovascular Exam Cardiovascular: Present RRR *Routine Abdominal Exam Abdominal: Present soft; Absent tenderness or distended *Routine Rectal Exam Rectal:: deferred *Routine Genitalia Exam Genitalia:: normal female Comment:: cervix 2-3/50/-2 srom during cervical exam- copious/excessive clear fluid IUPC and FSE placed without difficulty or complication *Routine Extremities Exam Extremities: Present edema (1+) *Routine Skin Exam Skin: Present intact and dry *Routine Neurological Exam Neurological: Present alert and oriented X3 Assessment and Plan *Assessment and plan (1) 38 weeks gestation
--- NOTE | 2022-05-02 20:53 | EXP.LABOR.NO ---
Labor Note Subjective: Date: 05/02/22 Time: 20:03 regular contraction Objective: NST:: Reactive Cervical Dilation:: 5-6 Effacement:: 50% Station: -1 Membranes: ruptured Fetus: Monitoring?: Yes monitoring type:: Internal and External Assessment: Labor progressing?: Yes All Active Problems (Updated 05/02/22 @ 19:57 by Janet Terrell MD) Polyhydramnios affecting (Acute) 38 weeks gestation of (Acute) (Acute) Morbid obesity with body mass index (BMI) of 40.0 or higher (Acute) Intrauterine device (IUD) contraceptive failure resulting in (Acute) Large for gestational age fetus (Acute) Decreased movement affecting management of in third trimester (Acute) Plan: Comment:: patient continues to decline epidural repositioned to encourage dilation
--- NOTE | 2022-05-02 21:07 | EXP.DN ---
Delivery Note Delivery Date:: 05/02/22 Delivery Time:: 20:29 Anesthesia Type: None Was labor medically induced?: Yes Induction method: per pitocin protocol Gestational age (weeks): 38 Infant delivered prior to 39 weeks?: Yes Justification for early elective delivery:: Polyhydraminos Gender: Female at 1 minute: 9 at 5 minutes: 9 Delivery Procedure:: Spontaneous vaginal delivery of live born over intact perineum. Delivery uncomplicated No nuchal cord, but true knot present in cord No shoulder dystocia with delivery placed in ASHLEY immediately after delivery, with standard nursing assessment performed Infant Apgars: 9 & 9 Placenta spontaneously expressed and examined; noted to be complete/intact. Vulva, vagina, and cervix inspected; no lacerations EBL: 200 cc All sponge/needle/instrument counts correct at conclusion of procedure Placental Delivery Description: Spontaneous
--- NOTE | 2022-05-02 22:15 | EXP.ACUTE.PN ---
Subjective *Date: 05/02/22 *Time: 22:15 Interval history: She was doing well but began passing a few large clots. She is lost now about 400 to 500 cc. She did receive a dose of Methergine. Medical Exam Vital signs and Labs for Last 24 Hours: Vital Signs Temp Pulse Resp BP Pulse Ox 05/02/22 07:31 97.9 F 86 19 124/61 100 05/02/22 06:32 97.9 F 86 18 121/56 L 100 Intake and Output 05/02/22 05/02/22 05/03/22 11:59 19:59 03:59 Other: Weight 250 lb Laboratory Results - last 24 hr 05/02/22 05:30: WBC 9.3, RBC 4.35, Hgb 12.2, Hct 37.0, MCV 85.2, MCH 28.1, MCHC 33.0, RDW 15.0, Plt Count 291, MPV 8.7, Neut % (Auto) 73.5, Lymph % (Auto) 21.8, [place] % (Auto) 3.2, Eos % (Auto) 1.2, Baso % (Auto) 0.2, Neut # (Auto) 6.9, Lymph # (Auto) 2.0, [place] # (Auto) 0.3, Eos # (Auto) 0.1, Baso # (Auto) 0.0 05/02/22 05:30: Urine Color Yellow, Urine Appearance Sl cloudy, Urine pH 7.0, Ur Specific [place] 1.020, Urine Protein Trace, Urine Glucose (UA) Negative, Urine Ketones Trace, Urine Blood Negative, Urine Nitrate Negative, Urine Bilirubin 1+ A, Urine Urobilinogen 2.0, Ur Leukocyte Esterase Trace, Urine RBC Occasional, Urine WBC Occasional, Ur Squamous Epith Cells 5-10, Urine Bacteria 1+ 05/02/22 05:30: SARS-CoV-2 (PCR) Not detected, Influenza A Untype (PCR) Not detected, Influenza Type B (PCR) Not detected 05/02/22 05:30: Blood Type A Positive, Antibody Screen Negative, Crossmatch (AHG) See Detail I & O for Labs for Last 24 Hours: Intake & Output 04/30/22 05/01/22 05/02/22 05/03/22 11:59 11:59 11:59 11:59 Weight 250 lb Head: Present atraumatic and normocephalic Assessment and Plan *Assessment and plan (1) hemorrhage: Status: Acute Category: Medical Code(s): O72.1 - Other immediate hemorrhage Plan I examined her uterus and was able to express a number of clots. The uterus was then well contracted and firm. We will continue with IV oxytocin overnight. I have also given her Cytotec 200 mcg every 6 for 3 doses.
[2022-05-03 07:27] LABS: Hematocrit 33.6 % (37.0-47.0); Hemoglobin 11.4 g/dL (12.2-16.2)
[2022-05-03 08:13] VITALS: BP 131/62; PULSE 83; RESP 19; TEMP 36.6; O2SAT 98
--- NOTE | 2022-05-03 17:05 | P.PN_ITS ---
Subjective *Date: 05/03/22 *Time: 17:05 Interval history: PPD #1 No unusual complaints Ambulating and voiding without difficulty Tolerating regular diet Lochia appropriate today after brisk bleeding last night requiring evacuation of clots from uterus Pain control is sufficient Infant is doing well Medical Exam Vital signs and Labs for Last 24 Hours: Vital Signs Temp Pulse Resp BP Pulse Ox 05/03/22 08:13 97.8 F 83 19 131/62 98 Laboratory Results - last 24 hr 05/02/22 05:30: Blood Type A Positive, Antibody Screen Negative, Crossmatch (AH G) See Detail 05/03/22 06:50: Hgb 11.4 L, Hct 33.6 L I & O for Labs for Last 24 Hours: Intake & Output 05/01/22 05/02/22 05/03/22 05/04/22 11:59 11:59 11:59 11:59 Weight 250 lb Comment:: No acute distress Comment:: breathing unlabored Comment:: Regular rate, normal peripheral pulses Comments:: abdomen soft, non-tender, non-distended Comment:: uterine fundus firm below umbilicus Comment:: 1+ edema bilateral lower extremities Comment:: no rash Assessment and Plan *Assessment and plan (1) 38 weeks gestation of : Status: Acute Category: Medical Code(s): Z3A.38 - 38 weeks gestation of (2) Polyhydramnios affecting : Status: Acute Category: Medical Code(s): O40.9XX0 - Polyhydramnios, unspecified trimester, not applicable or unspecified (3) hemorrhage: Status: Acute Category: Medical Code(s): O72.1 - Other immediate hemorrhage (4) Morbid obesity with body mass index (BMI) of 40.0 or higher: Status: Acute Category: Medical Code(s): E66.01 - Morbid (severe) obesity due to excess calories Plan s/p methergine and cytotec current bleeding appropriate continue routine care anticipate discharge home tomorrow
[2022-05-04 08:33] VITALS: BP 118/73; PULSE 72; RESP 17; TEMP 36.7; O2SAT 100
--- NOTE | 2022-05-04 10:43 | EXP.DC.SUM ---
General Admission date:: 05/02/22 HPI HPI HPI: 27 yo @ 38 07 care at [facility] complicated by IUD failure resulting in IUD removed early in without complication Measuring large for dates with normal EFW but polyhydramnios Also reporting decreased movement so she was scheduled for IOL Hospital Course Hospital Course Hospital Course: course complicated by uterine atony with hemorrhage on the evening of delivery This was successfully treated with anual evacuation of clots and medication (methergine and cytotec) The remainder of her course was uneventful She is discharged home on PPD #2 in stable condition She is tolerating a regular diet, ambulating and voiding without difficulty Exam Data for Last 24 hours Vital signs and Labs for Last 24 Hours: Temp Pulse Resp BP Pulse Ox 98.0 F 72 17 118/73 100 05/04/22 08:33 05/04/22 08:33 05/04/22 08:33 05/04/22 08:33 05/04/22 08:33 I & O for Last 24 hours: Intake & Output 05/01/22 05/02/22 05/03/22 05/04/22 11:59 11:59 11:59 11:59 Weight 250 lb Constitutional Constitutional: no acute distress *Routine HEENT Exam Head: Present normocephalic Eye: Absent conjunctival icterus or scleral injection ENT: Present mucous membranes moist *Routine Neck Exam Neck: Present supple *Routine Respiratory Exam Respiratory: Present CTA bilaterally *Routine Cardiovascular Exam Cardiovascular: Present RRR *Routine Abdominal Exam Abdominal: Present soft; Absent tenderness or distended *Routine Rectal Exam Patient deferred: visual exam and digital exam *Routine Exam Patient deferred: external exam Comments: Fundus firm below umbilicus *Routine Extremities Exam Extremities: Present edema *Routine Neurological Exam Neurological: Present alert and oriented X3 Routine Psychiatric Exam Psychiatric: Present normal affect; Absent depressed DS: Diagnosis Discharge Diagnosis (1) 38 weeks gestation of : Status: Acute (2) Polyhydramnios affecting : Status: Acute (3) hemorrhage: Status: Acute (4) Morbid obesity with body mass index (BMI) of 40.0 or higher: Status: Acute Meds Home Medications and Allergies Home Medications Medication Instructions Recorded Confirmed Type vits no.126-ferrous fum 1 tab PO DAILY Supplement 05/02/22 05/02/22 History 28 mg iron-folic acid 800 mcg tablet (Classic ) ibuprofen 400 mg tablet 800 mg PO Q6HP PRN Mild To 05/04/22 Rx Moderate Pain #30 tabs New Prescriptions to Start Prescriptions: ibuprofen Janet Terrell Allergies Allergy/AdvReac Type Severity Reaction Status Date / Time ciprofloxacin [From CIPRO] Allergy Unknown Verified 04/25/22 15:42 Discharge Plan Disposition Patient Disposition: Home, Self-Care Discharge Order Discharge Orders: Discharge Order (Routine); Ordered 05/04/22 Ordered By: Janet Terrell Follow up Plan Follow up with: Janet Terrell MD [Staff Physician] - 06/06/22 1:15 pm Prescriptions/Medication Reconciliation: New ibuprofen 400 mg Tablet 800 mg PO Q6HP PRN (Reason: Mild To Moderate Pain) Qty: 30 0RF Continued Classic 28 mg iron- 800 mcg tablet 1 tab PO DAILY Problem Reconciliation Problems Reviewed?: Yes Patient Discharge Instructions ACTIVITY: Continue current activity DIET: regular diet Additional Instructions: Nothing in the vagina for 6 weeks, and no heavy lifting. Patient Instructions: Depression, Hemorrhage, DI for Labor and Delivery, Vaginal , DI for Pre-eclampsia, H Post Discharge Instructions Providers Primary Care Provider: Refugio Reid Admit Provider: Aleah Lopez Attending Provider: Janet Terrell
== END 2022-05-04 11:10 | disposition home or self-care (01) | DRG 806 ==
PROVIDERS: Admitting Provider Obstetrics & Gynecology; PCP Internal Medicine Adolescent Medicine; Visit Provider Obstetrics & Gynecology
DX: O40.3XX0 Polyhydramnios, third trimester, not applicable or unspecified (principal); O72.1 Other immediate postpartum hemorrhage; Z37.0 Single live birth; Z3A.38 38 weeks gestation of pregnancy; O99.214 Obesity complicating childbirth; O36.8130 Decreased fetal movements, third trimester, not applicable or unspecified; O69.2XX0 Labor and delivery complicated by other cord entanglement, with compression, not applicable or unspecified
CPT/HCPCS: 59409; 36415; 59025; 81001; 85014; 85018; 85025; 86850; C1758; C9803; U0003; U0005

== ENCOUNTER → 2022-07-17 14:23 | Outpatient (CLI) | payer OTHER, SELFPAY ==
[2022-07-17 16:29] LABS: Free Thyroxine Index 2.1 ug/dL (5.93-13.13); T4 (Thyroxine) 6.7 ug/dl (5.53-11.0); Triiodothryronine (T3) Uptake 32 % (23.5-40.5)
[2022-07-17 16:42] LABS: Thyroid Stimulating Hormone 2.11 uIU/mL (0.465-4.68)
== END ==
PROVIDERS: PCP Internal Medicine Adolescent Medicine; Visit Provider Nurse Practitioner Obstetrics & Gynecology
DX: R53.83 Other fatigue (principal)
CPT/HCPCS: 36415; 84436; 84443; 84479

== ENCOUNTER → 2022-07-22 07:06 | Outpatient (CLI) | payer OTHER, SELFPAY ==
[2022-07-22 08:17] LABS: Chloride 108 mmol/L (98-107); Potassium 4.3 mmoL/L (3.5-5.1); Sodium 141 mmol/L (136-145)
[2022-07-22 08:18] LABS: Blood Urea Nitrogen 14 mg/dl (7-17); Estimated Glomerular Filt Rate 100 ml/min (>60); GFR (African American) 121 ML/MIN (>60)
[2022-07-22 08:19] LABS: Alanine Aminotransferase 28 U/L (12-78); Albumin Level 4.3 g/dl (3.5-5.0); Albumin/Globulin Ratio 1.2 (1.1-1.8); Alkaline Phosphatase 103 U/L (38-126); Anion Gap 10.3 mEq/L (5-15); Aspartate Amino Transferase 27 U/L (14-36); Basophils # 0.1 K/mm3 (0-0.2); Basophils % 0.6 % (0.1-2.0); Bilirubin,Total 0.9 mg/dl (0.2-1.3); Carbon Dioxide 27 mmol/L (22.0-30.0); Cholesterol 223 mg/dl (140-200); Eosinophils # 0.2 K/mm3 (0.0-0.4); Eosinophils % 2.3 % (0.1-12.0); Globulin 3.6 g/dL (1.3-3.2); Hematocrit 40.4 % (37.0-47.0); Hemoglobin 13.3 g/dL (12.2-16.2); Lymphocytes % 26.8 % (10-50); Mean Corpuscular HGB Conc 32.8 g/dL (31.8-35.4); Mean Corpuscular Hemoglobin 26.7 pg (27.0-31.2); Mean Corpuscular Volume 81.2 fl (81-99); Mean Platelet Volume 7.9 fl (7.4-10.4); Monocytes # 0.4 K/mm3 (0.1-1.0); Monocytes % 5.5 % (1.7-9.3); Neutrophils # 4.9 K/mm3 (1.8-7.8); Neutrophils % 64.8 % (37.0-80.0); Platelet Count 336 K/mm3 (142-424); Red Blood Count 4.97 M/mm3 (4.20-5.40); Red Cell Distribution Width 14.2 % (11.5-17.5); Total Protein,Serum 7.9 g/dl (6.3-8.2); Triglycerides 80 mg/dl (30-150); VLDL Cholesterol 16 mg/dL (0-40); White Blood Count 7.5 K/mm3 (4.8-10.8)
[2022-07-22 08:20] LABS: Chol/HDL Ratio 3.7 (1-3.5); Glucose 96 mg/dl (74-100); HDL Cholesterol 61 mg/dl (40-60); Hemoglobin A1C 5.7 % (4.0-6.0)
[2022-07-22 08:37] LABS: Triiodothryronine (T3) Uptake 35 % (23.5-40.5)
[2022-07-22 08:38] LABS: Free Thyroxine Index 2.7 ug/dL (5.93-13.13); T4 (Thyroxine) 7.6 ug/dl (5.53-11.0)
[2022-07-22 08:51] LABS: Thyroid Stimulating Hormone 2.11 uIU/mL (0.465-4.68)
== END ==
PROVIDERS: PCP Internal Medicine Adolescent Medicine; Visit Provider Internal Medicine Adolescent Medicine
DX: R79.89 Other specified abnormal findings of blood chemistry (principal); R73.9 Hyperglycemia, unspecified; R74.8 Abnormal levels of other serum enzymes; E78.2 Mixed hyperlipidemia
CPT/HCPCS: 36415; 80053; 80061; 83036; 84436; 84443; 84479; 85025

== ENCOUNTER → 2022-08-13 15:03 | Outpatient (CLI) | payer OTHER, SELFPAY ==
[2022-08-13 16:46] LABS: Basophils # 0.1 K/mm3 (0-0.2); Basophils % 0.8 % (0.1-2.0); Eosinophils # 0.2 K/mm3 (0.0-0.4); Eosinophils % 2.6 % (0.1-12.0); Hematocrit 39.7 % (37.0-47.0); Lymphocytes # 2.3 K/mm3 (0.7-4.5); Lymphocytes % 24.8 % (10-50); Mean Corpuscular HGB Conc 32.7 g/dL (31.8-35.4); Mean Corpuscular Hemoglobin 26.3 pg (27.0-31.2); Mean Corpuscular Volume 80.4 fl (81-99); Mean Platelet Volume 7.9 fl (7.4-10.4); Monocytes # 0.4 K/mm3 (0.1-1.0); Monocytes % 4.5 % (1.7-9.3); Neutrophils # 6.2 K/mm3 (1.8-7.8); Neutrophils % 67.4 % (37.0-80.0); Platelet Count 353 K/mm3 (142-424); Red Blood Count 4.94 M/mm3 (4.20-5.40); Red Cell Distribution Width 14.3 % (11.5-17.5); White Blood Count 9.1 K/mm3 (4.8-10.8)
[2022-08-13 17:02] LABS: Alanine Aminotransferase 25 U/L (12-78); Albumin Level 4.4 g/dl (3.5-5.0); Albumin/Globulin Ratio 1.5 (1.1-1.8); Alkaline Phosphatase 79 U/L (38-126); Aspartate Amino Transferase 25 U/L (14-36); Bilirubin,Total 0.5 mg/dl (0.2-1.3); Blood Urea Nitrogen 19 mg/dl (7-17); Calcium 9.2 mg/dl (8.4-10.2); Carbon Dioxide 29 mmol/L (22.0-30.0); Chloride 107 mmol/L (98-107); Estimated Glomerular Filt Rate 66 ml/min (>60); GFR (African American) 80 ML/MIN (>60); Glucose 98 mg/dl (74-100); Sodium 136 mmol/L (136-145); Total Protein,Serum 7.4 g/dl (6.3-8.2)
[2022-08-13 17:26] LABS: HCG,Quantitative < 2 mIU/ml (0-5.42)
== END ==
PROVIDERS: PCP Internal Medicine Adolescent Medicine; Visit Provider Nurse Practitioner Obstetrics & Gynecology
DX: Z31.61 Procreative counseling and advice using natural family planning (principal)
CPT/HCPCS: 36415; 80053; 84702; 85025

== ENCOUNTER 2022-08-15 07:09 | Day surgery (SDC) | payer OTHER, SELFPAY ==
[2022-08-14 10:11] VITALS: BMI 47.2
[2022-08-15] VITALS (10 sets, daily range): BP systolic 117–140; BP diastolic 68–84; PULSE 63–87; RESP 16–17; TEMP 36.4–43; O2SAT 98–100
--- NOTE | 2022-08-15 10:18 | EXP.ANES.CKL ---
[facility] Disclaimer: The information contained in this section may have been updated after the patient was seen, as this information can be updated by other users. Medical History Allergies Heart murmur History of COVID-19 Migraine Pancreatitis Surgical History H/O adenoidectomy History of cholecystectomy History of tonsillectomy Family History Other Hyperlipidemia Thyroid disorder Social History (Updated 08/15/22 @ 07:30 by Rosalba Irwin RN) Smoking Status: Never smoker alcohol intake: never substance use type: denies use current occupational status: employed Travel in the last 8 weeks: None household members: other housing: other [facility] Anesthesia Checklist Patient Identification Patient Identification: Arm Band Structural Data Admitted From: Home Planned Operative Procedure/s: Laparoscopic Salpingectomy Consent for Planned Operative Procedure(s) Verified: Yes Verified Documents: Surgical Consent and History and Physical NPO Status Verified Time NPO: 00:00 Additional verifications Anesthesia Reactions: No Hx Blood Transfusions: No Blood Transfusion Reaction: No Airway Assessment C-Spine Mobility Assessed: Yes TMJ Mobility Assessed: Yes Dentition: Good Dentition Neurological Assessment Level of Consciousness: Awake and Alert Anesthesia Plan Anesthesia Risk discussed: Yes Anesthesia Plan: Verified ASA Class: III Anesthesia Type: General
--- NOTE | 2022-08-15 10:49 | EXP.OP.NOTE ---
Date of procedure: 08/15/22 Pre-op Diagnosis:: Desire for sterilization Post-op Diagnosis:: Desire for sterilization Procedure performed:: Laparoscopic bilateral salpingectomy Surgeon:: Yossi Pham MD INFANT TOD[employer]ER LEAD TEACHER:: Jamari Murrell Anesthesia: GETA Estimated blood loss (mL): 25 Clinical Note:: She is a 27-year-old 5 para 5 lady who expressed desire for sterilization. The risks and benefits as well as the irreversibility of bilateral salpingectomy were discussed with the patient prior to surgery. Operative findings:: She had a normal-appearing anteverted bulky uterus. The tubes and ovaries were followed to their fimbriated end and appeared normal. The appendix was normal in appearance as was the upper abdomen. The deep pelvis appeared normal as well. Operative note:: She was taken to the operating room where general anesthesia was found be adequate. She was prepped and draped in normal sterile fashion in the semilithotomy position. A weighted speculum was placed in the vagina and the anterior lip of the cervix was grasped with a tenaculum. I then inserted a Allison uterine manipulator into the cervical os. The balloon was then insufflated. I changed gloves and injected 10 cc of 0.5% ropivacaine around her umbilicus and made a small incision within the umbilicus. I inserted a Veress needle into the abdominal cavity. The peritoneal cavity was then insufflated with carbon dioxide gas to a pressure of 20 mmHg. I then inserted a 5 millimeter trocar under direct vision. I injected through and through the pubic hairline, made a small incision here and inserted an 8 mm trocar under direct vision. I identified the inferior epigastric artery on the left side, went lateral to these and injected through and through. I then placed a 5 mm trocar here under direct vision. The pelvis and upper abdomen were then inspected and the findings were as previously dictated. I grasped the right tube at the cornua and using harmonic scalpel on coagulation mode I cut through the tube. I then grasped the distal tube and using harmonic scalpel cut along the mesosalpinx. The tube was removed through 8 mm trocar site. This was similarly performed on the patient's left side. I then injected 30 cc of 0.5% ropivacaine into the pelvis. After assuring hemostasis the gas was let out of the abdomen and hemostasis was once again assured. The abdomen was then reinsufflated. The secondary trochars were removed under direct vision. The gas was let out her abdomen. The primary trocar was then removed. The 8 mm trocar site was closed deeply with 2-0 Vicryl suture followed by subcuticular 4-0 Monocryl suture. The 5 mm trocar sites were closed with subcuticular 4-0 Monocryl. Sterile dressings were applied. The patient tolerated the procedure well and was taken to the recovery room in excellent condition. All sponge instrument and needle counts were correct. The estimated blood loss was less than 25 cc. Condition: stable Disposition: PACU Specimens:: Bilateral fallopian tubes Complications:: None
--- NOTE | 2022-08-15 10:54 | P.PNANES_ITS ---
[facility] Anesthesia Record Part I Anesthesia Record I Intake, IV Amount: 1,000 Estimated blood loss (mL): 25 Urine output (mL): 0 Blood Pressure: 133/79 SaO2: 99 Pulse Rate: 69 Respiratory Rate: 16 Temperature: 99.7 F Patient is:: Drowsy and Stable Stable to PACU at:: 10:50
--- NOTE | 2022-08-15 14:38 | P.PNANES_ITS ---
[facility] Anesthesia Record Part II Anesthesia Record Part II Discharge Time: 11:20 Destination: Surgical Day Care (OP Surgery) PACU nurse assessment reviewed?: Yes Patient Condition:: Good Anesthesia Complications:: None Swallowing reflex intact?: Yes Cyanosis?: No Blood Pressure: 140/73 Pulse Rate: 64 Temperature: 97.6 F Mental Status: Alert & Oriented Pain level:: 3 Nausea and/or vomitting:: None Intake, IV Amount: 0
== END 2022-08-15 11:50 | disposition home or self-care (01) ==
PROVIDERS: PCP Internal Medicine Adolescent Medicine; Visit Provider Nurse Practitioner Obstetrics & Gynecology
PROC: (CPT 58661; principal; 2022-08-15 08:45)
DX: Z30.2 Encounter for sterilization (principal)
CPT/HCPCS: 58661; 96374; J2405; J2710

== ENCOUNTER → 2022-09-30 15:42 | Outpatient (CLI) | payer OTHER, SELFPAY ==
--- NOTE | 2022-09-30 15:48 | XR_ITS ---
FINAL REPORT CLINICAL HISTORY: LT FINGER PAIN pad lock fell about 10 feet striking her left hand. FINDINGS: LEFT HAND Three views demonstrate no acute fracture or dislocation. The visualized joint spaces are normally aligned. The soft tissues are unremarkable. IMPRESSION: No acute process. Reviewed, Interpreted and Dictated by Collin Clark III, MD Transcribed by Ashley Braun Authenticated and [facility]
== END ==
PROVIDERS: PCP Nurse Practitioner Family; Visit Provider Nurse Practitioner Family
DX: M79.645 Pain in left finger(s) (principal)
CPT/HCPCS: 73130

== ENCOUNTER 2022-11-05 15:42 | Emergency (ER) | payer OTHER, SELFPAY ==
[2022-11-05 15:50] VITALS: BP 142/73; PULSE 91; RESP 21; TEMP 37; O2SAT 100; BMI 46.6
--- NOTE | 2022-11-05 16:05 | EXP.UTC ---
Discharge Plan Disposition Patient Disposition: Home, Self-Care Condition: Good Prescriptions Prescriptions: New clindamycin HCl 300 mg capsule 300 mg PO Q8H 10 Days Qty: 30 0RF mupirocin 2 % ointment 1 applic topical TID 10 Days Qty: 22 0RF Rx Instructions: apply to area as directed Referrals Follow up/Referrals: Refugio Reid MD [Primary Care Provider] - See instructions Activity Restrictions/Add. Instructions Additional Instructions/Restrictions: *Start antibiotic(s) immediately and be sure to take as ordered for the FULL length of time although you may be feeling better or start to see improvement in the next 24-48 hours *Monitor closely. Outlined redness so that you can monitor easier. Follow up immediately for new or worsening symptoms including but not limited to redness, swelling, streaking from site fever or chills. *Warm compress 15 minutes 3-4 times day *Never squeeze or pop these on your own. Seek immediate medical attention next time this occurs *Monitor Temp. Tylenol every 4 hours as needed and ibuprofen every 6 hours as needed (as long as your primary care doctor has told you that it is ok to take both. For fever, aches, pain. ER if no less that 101 despite Tylenol and ibuprofen ?Follow up with Dr Pham tomorrow as scheduled Instructions Patient Instructions: Clindamycin, Mupirocin, DI for Skin Abscess Discharge ED Provider: Nubia Mabry [facility] [place] General Stated complaint: inner right leg knot Mode of Arrival: Ambulatory Source of Information: Patient Limitations: No Limitations Time Seen by Provider: 11/05/22 15:55 Description of Symptoms (Recalled from Triage Doc. by RN): PATIENT C/O POSSIBLE ABSCESS TO INSIDE OF RIGHT LEG NEAR GENITAL AREA SINCE FRIDAY HEENT Symptoms (Recalled from RN notes): No Resp Symptoms (Recalled from RN notes): No Skin Symptoms (Recalled from RN notes): Yes MS Symptoms (Recalled from RN notes): No Functional Status (Recalled from RN notes): WNL History of Present Illness Provider Complaint: Patient states that she has been have swollen red hard area on her upper part of her vagina near her right groin area since Friday that has continued to get larger and more red States that it opened up earlier today and started draining some States that she had appointment today but got changed till tomorrow due to an emergency but when it was looking more red and warm she came in thinking she may need some antibiotics until she can see tomorrow Related Data Previous Rx's Medication Instructions Recorded clindamycin HCl 300 mg capsule 300 mg PO Q8H 10 days #30 caps 11/05/22 mupirocin 2 % topical ointment 1 applic topical TID 10 days #22 11/05/22 grams Allergies Allergy/AdvReac Type Severity Reaction Status Date / Time ciprofloxacin [From CIPRO] Allergy Unknown Hives Verified 09/09/22 15:17 Worker's Comp Is this a Worker's Comp case?: No [facility] Disclaimer: The information contained in this section may have been updated after the patient was seen, as this information can be updated by other users. Medical History Allergies Heart murmur History of COVID-19 Migraine Pancreatitis Surgical History H/O adenoidectomy History of cholecystectomy History of tonsillectomy Family History Other Hyperlipidemia Thyroid disorder Social History Smoking Status: Never smoker alcohol intake: never substance use type: denies use current occupational status: employed Travel in the last 8 weeks: None household members: other housing: other ROS Obtained: Yes All systems reviewed & no additional complaints except as documented and Yes Systems reviewed as appropriate & no additional complaints except as documented Constitutional Constitut
[2022-11-05 16:08] VITALS: BP 142/73; PULSE 91; RESP 21; TEMP 37; O2SAT 100
== END 2022-11-05 16:10 | disposition home or self-care (01) ==
PROVIDERS: Emergency Provider Nurse Practitioner; PCP Internal Medicine Adolescent Medicine
DX: L02.214 Cutaneous abscess of groin (principal)
CPT/HCPCS: 87070; 87077; 87186; 87205; 99212; 99214; G0463

== ENCOUNTER 2022-12-11 13:35 | Emergency (ER) | payer OTHER, SELFPAY ==
[2022-12-11 13:40] VITALS: BP 137/83; PULSE 71; RESP 20; TEMP 36.9; O2SAT 98; BMI 46.0
--- NOTE | 2022-12-11 14:17 | EXP.UTC ---
Discharge Plan Disposition Patient Disposition: Home, Self-Care Condition: Good Referrals Follow up/Referrals: Refugio Reid MD [Primary Care Provider] - See instructions Activity Restrictions/Add. Instructions Additional Instructions/Restrictions: Suture instructions: ?You have required stitches today. Please read the following instructions so you know how to care for them: ?1. Keep wound area dry for the first 24 hours. 2?? May clean gently with mild soap and water, after 48 hours to prevent crusting over suture knots. 3. You may shower if your provider gives permission but do not take a bath until the skin is healed.. 4. Never leave a wet dressing or Band-Aid on your stitches as this allows bacteria to reach the area and may cause infection. Band-aids can cause the wound to sweat and not recommended to wear for long periods of time Watch for signs of infection: ? Increasing redness, tenderness or warmth around the suture site ? Unusual swelling around the site ? Appearance of pus around each suture or any red streaks ? Fever If you develop any of the above signs or symptoms of infection, Follow up with Family Physician immediately 5. Suture removal in _10-12___days 6. Return to [facility] or follow up with family doctor for removal. This can be done by any medical provider dur?ing regular hours on Friday through Friday, by appointment. Wear finger splint until stiches removed Clinical Impressions Clinical Impression: Laceration Instructions Patient Instructions: DI for Laceration Repair Discharge ED Provider: Nubia Mabry [facility] [place] HPI General Stated complaint: AO@Home 12/11 Middle finger LT hand lac Mode of Arrival: Ambulatory Source of Information: Patient Limitations: No Limitations Time Seen by Provider: 12/11/22 13:55 Description of Symptoms (Recalled from Triage Doc. by RN): PATIENT C/O LACERATION TO LEFT MIDDLE FINGER. SHE REPORTS CUTTING IT WITH A KNIFE APPROX 1 HOUR [employer] HEENT Symptoms (Recalled from RN notes): No Resp Symptoms (Recalled from RN notes): No Skin Symptoms (Recalled from RN notes): Yes MS Symptoms (Recalled from RN notes): No Functional Status (Recalled from RN notes): WNL History of Present Illness Provider Complaint: Patient states that she accidently cut her left middle finger about an hour ago with a knife at home States that it was on her knuckle area and kept opening up and bleeding so she came in Statse that tetanus is up to date Related Data Allergies Allergy/AdvReac Type Severity Reaction Status Date / Time ciprofloxacin [From CIPRO] Allergy Unknown Hives Verified 11/06/22 15:43 Worker's Comp Is this a Worker's Comp case?: No [facility] Disclaimer: The information contained in this section may have been updated after the patient was seen, as this information can be updated by other users. Medical History Allergies Heart murmur History of COVID-19 Migraine Pancreatitis Surgical History H/O adenoidectomy History of cholecystectomy History of tonsillectomy Family History Other Hyperlipidemia Thyroid disorder Social History Smoking Status: Never smoker alcohol intake: never substance use type: denies use current occupational status: employed Travel in the last 8 weeks: None household members: other housing: other ROS Obtained: Yes All systems reviewed & no additional complaints except as documented and Yes Systems reviewed as appropriate & no additional complaints except as documented Constitutional Constitutional: Reports system reviewed and no additional complaints, except as documented and Reports as per HPI ENT Ears, Nose, Mouth, and Throat: Reports system reviewed and no additional complaints, except as documented and Reports as per HPI Cardiovascular
[2022-12-11 14:21] VITALS: BP 137/83; PULSE 71; RESP 20; TEMP 36.9; O2SAT 98
== END 2022-12-11 14:27 | disposition home or self-care (01) ==
PROVIDERS: Emergency Provider Nurse Practitioner; PCP Internal Medicine Adolescent Medicine
DX: S61.213A Laceration without foreign body of left middle finger without damage to nail, initial encounter (principal); R01.1 Cardiac murmur, unspecified; W26.0XXA Contact with knife, initial encounter; G43.909 Migraine, unspecified, not intractable, without status migrainosus
CPT/HCPCS: 12001; 99213; G0463

== ENCOUNTER 2023-07-12 08:30 | Outpatient (CLI) | payer OTHER, SELFPAY ==
[2023-07-12 09:14] LABS: Basophils # 0.1 K/mm3 (0-0.2); Basophils % 0.7 % (0.1-2.0); Eosinophils # 0.2 K/mm3 (0.0-0.4); Eosinophils % 3.1 % (0.1-12.0); Hematocrit 39.7 % (37.0-47.0); Hemoglobin 13.5 g/dL (12.2-16.2); Lymphocytes # 1.8 K/mm3 (0.7-4.5); Lymphocytes % 28.5 % (10-50); Mean Corpuscular HGB Conc 33.9 g/dL (31.8-35.4); Mean Corpuscular Volume 79.7 fl (81-99); Mean Platelet Volume 7.8 fl (7.4-10.4); Monocytes # 0.3 K/mm3 (0.1-1.0); Monocytes % 4.7 % (1.7-9.3); Neutrophils % 62.9 % (37.0-80.0); Platelet Count 277 K/mm3 (142-424); Red Blood Count 4.98 M/mm3 (4.20-5.40); Red Cell Distribution Width 13.9 % (11.5-17.5); White Blood Count 6.4 K/mm3 (4.8-10.8)
[2023-07-12 09:35] LABS: Chloride 107 mmol/L (98-107); Potassium 4.4 mmoL/L (3.5-5.1); Sodium 137 mmol/L (136-145)
[2023-07-12 09:37] LABS: Alanine Aminotransferase 16 U/L (12-78); Aspartate Amino Transferase 20 U/L (14-36); Blood Urea Nitrogen 14 mg/dl (7-17); Estimated Glomerular Filt Rate 99 ml/min (>60); GFR (African American) 120 ML/MIN (>60)
[2023-07-12 09:38] LABS: Albumin Level 3.8 g/dl (3.5-5.0); Albumin/Globulin Ratio 1.3 (1.1-1.8); Alkaline Phosphatase 76 U/L (38-126); Anion Gap 9.4 mEq/L (5-15); Bilirubin,Total 0.6 mg/dl (0.2-1.3); Calcium 8.7 mg/dl (8.4-10.2); Carbon Dioxide 25 mmol/L (22.0-30.0); Chol/HDL Ratio 3.7 (1-3.5); Cholesterol 178 mg/dl (140-200); Glucose 96 mg/dl (74-100); HDL Cholesterol 48 mg/dl (40-60); Total Protein,Serum 6.8 g/dl (6.3-8.2); Triglycerides 64 mg/dl (30-150); VLDL Cholesterol 13 mg/dL (0-40)
[2023-07-12 09:49] LABS: Direct LDL Cholesterol 93.71 mg/dL (100-129)
[2023-07-12 10:09] LABS: Thyroid Stimulating Hormone 1.88 uIU/mL (0.465-4.68)
== END 2023-07-12 23:59 ==
LOC: LAB 08:31
PROVIDERS: PCP Internal Medicine Adolescent Medicine; Visit Provider Nurse Practitioner Family
DX: Z00.00 Encounter for general adult medical examination without abnormal findings (principal); E78.2 Mixed hyperlipidemia; R74.8 Abnormal levels of other serum enzymes; R79.89 Other specified abnormal findings of blood chemistry
CPT/HCPCS: 36415; 80053; 80061; 83036; 84443; 85025

== ENCOUNTER 2023-09-13 08:13 | Outpatient (CLI) | payer OTHER, SELFPAY ==
[2023-09-13 08:54] LABS: Basophils # 0.1 K/mm3 (0-0.2); Basophils % 1.2 % (0.1-2.0); Eosinophils # 0.2 K/mm3 (0.0-0.4); Eosinophils % 2.9 % (0.1-12.0); Hematocrit 43.6 % (37.0-47.0); Hemoglobin 13.8 g/dL (12.2-16.2); Mean Corpuscular HGB Conc 31.7 g/dL (31.8-35.4); Mean Corpuscular Hemoglobin 26.3 pg (27.0-31.2); Mean Platelet Volume 7.9 fl (7.4-10.4); Monocytes # 0.3 K/mm3 (0.1-1.0); Neutrophils # 5.4 K/mm3 (1.8-7.8); Neutrophils % 66.9 % (37.0-80.0); Platelet Count 343 K/mm3 (142-424); Red Blood Count 5.26 M/mm3 (4.20-5.40); Red Cell Distribution Width 13.8 % (11.5-17.5)
[2023-09-13 09:04] LABS: Chloride 108 mmol/L (98-107)
[2023-09-13 09:05] LABS: Potassium 4.7 mmoL/L (3.5-5.1); Sodium 139 mmol/L (136-145)
[2023-09-13 09:07] LABS: Alanine Aminotransferase 16 U/L (12-78); Anion Gap 5.7 mEq/L (5-15); Aspartate Amino Transferase 21 U/L (14-36); Blood Urea Nitrogen 15 mg/dl (7-17); Carbon Dioxide 30 mmol/L (22.0-30.0); Estimated Glomerular Filt Rate 99 ml/min (>60); GFR (African American) 120 ML/MIN (>60)
[2023-09-13 09:08] LABS: Albumin Level 3.8 g/dl (3.5-5.0); Albumin/Globulin Ratio 1.2 (1.1-1.8); Alkaline Phosphatase 93 U/L (38-126); Bilirubin,Total 0.4 mg/dl (0.2-1.3); Calcium 9.1 mg/dl (8.4-10.2); Chol/HDL Ratio 3.7 (1-3.5); Cholesterol 190 mg/dl (140-200); Globulin 3.2 g/dL (1.3-3.2); Glucose 112 mg/dl (74-100); HDL Cholesterol 52 mg/dl (40-60); Triglycerides 63 mg/dl (30-150); VLDL Cholesterol 13 mg/dL (0-40)
[2023-09-13 09:19] LABS: Direct LDL Cholesterol 93.56 mg/dL (100-129)
[2023-09-13 09:39] LABS: Thyroid Stimulating Hormone 2.01 uIU/mL (0.465-4.68)
[2023-09-13 10:34] LABS: Hemoglobin A1C 5.1 % (4.0-6.0); Vitamin B12 352 pg/mL (239-931)
[2023-09-14 10:08] LABS: HBsAg Screen Negative (Negative); HCV Ab Non Reactive (Non Reactive); Hep A Ab, IGM Negative (Negative); Hep B Core Ab, IgM Negative (Negative)
== END 2023-09-13 23:59 ==
LOC: LAB 08:14
PROVIDERS: PCP Internal Medicine Adolescent Medicine; Visit Provider Nurse Practitioner Family
DX: E78.2 Mixed hyperlipidemia (principal); R79.89 Other specified abnormal findings of blood chemistry; E53.8 Deficiency of other specified B group vitamins; Z20.5 Contact with and (suspected) exposure to viral hepatitis
CPT/HCPCS: 36415; 80053; 80061; 80074; 82607; 83036; 84443; 85025

== ENCOUNTER 2024-01-07 15:32 | Outpatient (CLI) | payer OTHER, SELFPAY ==
--- NOTE | 2024-01-07 | XR_ITS ---
FINAL REPORT CLINICAL HISTORY: injurred third finger in dec. c/o pain distal 3rd finger COMPARISON: 09/30/2022 FINDINGS: Three views show no evidence of acute displaced fracture or dislocation of the visualized bony architecture. The joint spaces appear normal. IMPRESSION: Unremarkable exam. Reviewed, Interpreted and Dictated by Amandeep Delacruz MD Transcribed by Lucy Tellez Authenticated and [facility]
== END 2024-01-07 23:59 | disposition home or self-care (01) ==
LOC: RAD 15:33
PROVIDERS: PCP Internal Medicine Adolescent Medicine; Visit Provider Internal Medicine Adolescent Medicine
DX: M79.645 Pain in left finger(s) (principal)
CPT/HCPCS: 73130

== ENCOUNTER 2024-05-29 08:36 | Outpatient (CLI) | payer OTHER, SELFPAY ==
[2024-06-01 21:10] LABS: QuantiFERON-TB Gold Plus Negative (Negative)
== END 2024-05-29 23:59 | disposition home or self-care (01) ==
LOC: LAB 08:38
PROVIDERS: PCP Nurse Practitioner Family; Visit Provider Nurse Practitioner Family
DX: Z11.1 Encounter for screening for respiratory tuberculosis (principal)
CPT/HCPCS: 36415; 86480

== ENCOUNTER 2024-07-19 15:21 | Outpatient (CLI) | payer OTHER, SELFPAY ==
--- NOTE | 2024-07-19 15:25 | XR_ITS ---
FINAL REPORT CLINICAL HISTORY: L ankle pain COMPARISON: None FINDINGS: LEFT ANKLE Three views demonstrate no acute fracture or dislocation. The visualized joint spaces are normally aligned. The soft tissues are unremarkable. Note is made of an 11 mm os trigonum. IMPRESSION: No acute bony abnormality. Reviewed, Interpreted and Dictated by Deejay Mckeon MD Transcribed by Estrellita John Authenticated and [facility]
--- NOTE | 2024-07-19 15:25 | XR_ITS ---
FINAL REPORT TECHNIQUE: 3 views left foot CLINICAL HISTORY: L ankle pain COMPARISON: None FINDINGS: LEFT FOOT 3 views of the left foot were obtained. There is no acute fracture or dislocation. The joint spaces are intact. There is no soft tissue abnormality. IMPRESSION: No acute fracture Reviewed, Interpreted and Dictated by Deejay Mckeon MD Transcribed by Estrellita John Authenticated and [facility]
== END 2024-07-19 23:59 | disposition home or self-care (01) ==
LOC: RAD 15:22
PROVIDERS: PCP Nurse Practitioner Family; Visit Provider Student in an Organized Health Care Education/Training Program
DX: M25.572 Pain in left ankle and joints of left foot (principal)
CPT/HCPCS: 73610; 73630

== ENCOUNTER 2024-07-21 15:22 | Outpatient (RCR) | payer OTHER, SELFPAY | END 2024-07-21 23:59 | disposition home or self-care (01) | LOC: PT 15:22 | PROVIDERS: Visit Provider Nurse Practitioner Family | DX: M79.672 Pain in left foot (principal) | CPT/HCPCS: 97760 ==

== ENCOUNTER 2024-11-16 14:51 | Outpatient (CLI) | payer SELFPAY ==
[2024-11-17 09:13] LABS: Rubella Antibodies, IgG 2.52 index (Immune >0.99); Varicella Zoster IgG Reactive (Non Reactive)
== END 2024-11-16 23:59 | disposition home or self-care (01) ==
LOC: LAB 14:52
PROVIDERS: PCP Nurse Practitioner Family; Visit Provider Nurse Practitioner Family
DX: Z01.84 Encounter for antibody response examination (principal); Z78.9 Other specified health status
CPT/HCPCS: 36415; 86762; 86787